=== PATIENT | female | born 1990 | race Caucasian/White ===

== ENCOUNTER 2016-08-15 12:22 | Emergency (ER) | payer OTHER ==
[2016-08-15 12:55] VITALS: BP 125/94
--- NOTE | 2016-08-15 13:29 | UC ---
Skin Complaint HPI - HPI Summary HPI Summary: ONE WEEK AGO GIVEN ACZONE BY HAND FINISHER. USING CREME AND 12 HOURS AGO FELT IRRITATION AND BURNING AROUND EYES. TODAY HAS REDNESS AND SMALL BLISTERS AROUND EYES WELL REDNESS TO CONJUNCTIVAE. - History of Current Complaint Chief Complaint: UCAllergicReaction Time Seen by Provider: 08/15/16 13:01 Stated Complaint: RX REACTION Hx Obtained From: Patient Hx Last Menstrual Period: 08/14/16 Onset/Duration: Sudden Onset, Lasting Hours Skin Exposure Onset/Duration: Days Ago Onset Severity: Moderate Current Severity: Moderate Location: Discrete - BILAT EYE LIDS & EYES Character: Hives, Painful Aggravating: Touch Alleviating: Unknown Associated Signs & Symptoms: Positive: Rash, Drainage, Tenderness. Negative: Vomiting, Numbness, Diaphoresis, Weakness, Shivering, Difficulty Breathing, Fever, Chills, Cough, Wheezing, Chest Pain, Hoarseness, Throat Tightening, Abdominal Pain, Lightheadedness, Syncope, Bruising, Red Streaks, Joint Swelling Related History: Recent change in medication - Allergy/Home Medications Allergies/Adverse Reactions: Allergies Allergy/AdvReac Type Severity Reaction Status Date / Time No Known Allergies Allergy Verified 07/16/16 18:19 Review of Systems Constitutional: Negative Skin: Rash Eyes: Eye Redness, Photophobia ENT: Negative Respiratory: Negative Cardiovascular: Negative Gastrointestinal: Negative Genitourinary: Negative Motor: Negative Neurovascular: Negative Musculoskeletal: Negative Neurological: Negative Psychological: Negative All Other Systems Reviewed And Are Negative: Yes PMH/Surg Hx/FS Hx/Imm Hx Previously Healthy: Yes Endocrine History Of: Denies: Diabetes, Thyroid Disease Cardiovascular History Of: Denies: Cardiac Disorders, Hypertension, Congestive Heart Failure Respiratory History Of: Reports: Asthma Denies: COPD GI/ History Of: Denies: Ulcer, Renal Disease - Surgical History Surgical History: Yes Surgery Procedure, Year, and Place: Tubes in ears as a child - Family History Known Family History: Positive: Respiratory Disease Negative: Renal Disease - Social History Occupation: Employed Full-time, Student Lives: Alone Alcohol Use: Rare Substance Use Type: None Smoking Status (MU): Former Smoker Type: Cigarettes Amount Used/How Often: t Length of Time of Smoking/Using Tobacco: 5 years Have You Smoked in the Last Year: Yes When Did the Patient Quit Smoking/Using Tobacco: t - Immunization History Most Recent Influenza Vaccination: doesn't get Physical Exam Triage Information Reviewed: Yes Appearance: Well-Appearing, No Pain Distress, Well-Nourished Vital Signs: Initial Vital Signs Temp 98.1 F 08/15/16 12:50 Pulse 70 08/15/16 12:50 Resp 18 08/15/16 12:50 BP 125/94 08/15/16 12:50 Pulse Ox 99 08/15/16 12:50 Eyes: Positive: Conjunctiva Inflamed ENT Exam: Normal ENT: Positive: Normal ENT inspection, Hearing grossly normal, Pharynx normal, TMs normal Dental Exam: Normal Neck exam: Normal Neck: Positive: Supple, Nontender Respiratory Exam: Normal Respiratory: Positive: Chest non-tender, Lungs clear, Normal breath sounds, No respiratory distress, No accessory muscle use Cardiovascular Exam: Normal Cardiovascular: Positive: RRR, No Murmur, Pulses Normal Abdominal Exam: Normal Abdomen Description: Positive: Nontender, No Organomegaly Musculoskeletal Exam: Normal Musculoskeletal: Positive: Strength Intact, ROM Intact Neurological Exam: Normal Psychological Exam: Normal Psychological: Positive: Normal Response To Family Skin Exam: Normal Course/Dx - Differential Diagnoses - Skin Complaint Differential Diagnoses: Contact Dermatitis, Drug Rash, Impetigo, Local Allergic Reaction, Medication; Adverse Reaction, Tinea - Diagnoses Provider Diagnoses: CONTACT DERMATITIS. CONJUNCTIVITIS Discharge - Discharge Plan Condition: Stable Disposition: HOME Prescriptions: Neomycin/Polym/HC OPTH.SUSP* [Cortisporin OPHTH.SUSP*] 1 drop BOTH EYES Q4H #1 btl predniSONE TAB* [Deltasone TAB*] 10 mg PO DAILY #26 tab Patient Education Materials: Contact Dermatitis (ED), Conjunctivitis (ED) Forms: *Work Release Referrals: Dinorah Newberry NP [Primary Care Provider] -
== END 2016-08-15 13:22 | disposition home or self-care (01) ==
LOC: UCEAST 12:22
DX: L25.3 Unspecified contact dermatitis due to other chemical products (principal); H10.9 Unspecified conjunctivitis; Z87.891 Personal history of nicotine dependence
CPT/HCPCS: 99212; G0463

== ENCOUNTER 2016-09-13 20:30 | Emergency (ER) | payer OTHER ==
[2016-09-13 20:56] VITALS: BP 121/74
[2016-09-13] MEDS ORDERED: Oseltamivir CAP* 75 MG PO ONE (21:07)
[2016-09-13] MEDS ORDERED: predniSONE TAB* 20 MG PO ONE (21:07)
--- NOTE | 2016-09-13 21:24 | UC ---
Respiratory Complaint HPI - HPI Summary HPI Summary: Nasal congestion, fevers, hoarse voice, lots of wheezing despite using inhaler starting about 48 hours ago. Denies n/v/d. - History of Current Complaint Chief Complaint: UCRespiratory Stated Complaint: ST,CONGESTION,ACHES Time Seen by Provider: 09/13/16 21:02 Hx Obtained From: Patient Hx Last Menstrual Period: 09/11/16 ?: No Onset/Duration: Gradual Onset, Lasting Days Timing: Constant Severity Initially: Mild Severity Currently: Moderate Character: Cough: Nonproductive Aggravating Factors: Deep Breaths, Recumbent Position Alleviating Factors: Upright Position Associated Signs And Symptoms: Positive: Fever, Chills, Wheezing, URI, Nasal Congestion - Allergies/Home Medications Allergies/Adverse Reactions: Allergies Allergy/AdvReac Type Severity Reaction Status Date / Time No Known Allergies Allergy Verified 09/13/16 20:56 PMH/Surg Hx/FS Hx/Imm Hx Endocrine History Of: Denies: Diabetes, Thyroid Disease Cardiovascular History Of: Denies: Cardiac Disorders, Hypertension, Congestive Heart Failure Respiratory History Of: Reports: Asthma Denies: COPD GI/ History Of: Denies: Ulcer, Renal Disease - Surgical History Surgical History: Yes Surgery Procedure, Year, and Place: Tubes in ears as a child. wisdom teeth - Family History Known Family History: Positive: Respiratory Disease Negative: Renal Disease - Social History Occupation: Employed Part-time, Student Alcohol Use: Weekly Substance Use Type: None Smoking Status (MU): Former Smoker Type: Cigarettes Amount Used/How Often: t Length of Time of Smoking/Using Tobacco: 5 years Have You Smoked in the Last Year: Yes When Did the Patient Quit Smoking/Using Tobacco: 1.5 years ago - Immunization History Most Recent Influenza Vaccination: doesn't get Review of Systems Constitutional: Fever, Chills, Fatigue Skin: Negative Eyes: Negative ENT: Nasal Discharge Respiratory: Shortness Of Breath, Cough Cardiovascular: Negative Gastrointestinal: Negative Genitourinary: Negative Motor: Negative Neurovascular: Negative Musculoskeletal: Negative Neurological: Negative Psychological: Negative All Other Systems Reviewed And Are Negative: Yes Physical Exam Triage Information Reviewed: Yes Appearance: Well-Appearing, No Pain Distress, Well-Nourished Vital Signs: Initial Vital Signs Temp 98.5 F 09/13/16 20:50 Pulse 82 09/13/16 20:50 Resp 18 09/13/16 20:50 BP 121/74 09/13/16 20:50 Pulse Ox 100 09/13/16 20:50 Vital Signs Reviewed: Yes Eye Exam: Normal Eyes: Positive: Conjunctiva Clear ENT: Positive: Pharynx normal, Nasal congestion, TMs normal Dental Exam: Normal Neck exam: Normal Neck: Positive: Supple, Nontender, No Lymphadenopathy Respiratory: Positive: Chest non-tender, Lungs clear, Normal breath sounds, No respiratory distress, No accessory muscle use Cardiovascular Exam: Normal Cardiovascular: Positive: RRR, No Murmur Musculoskeletal Exam: Normal Neurological Exam: Normal Psychological Exam: Normal Skin Exam: Normal UC Diagnostic Evaluation - Laboratory O2 Sat by Pulse Oximetry: 100 Respiratory Course/Dx - Differential Dx/Diagnosis Provider Diagnoses: Vtihnlulf-nsii-jrirtpt. bronchospasm Discharge - Discharge Plan Condition: Stable Disposition: HOME Prescriptions: Oseltamivir CAP* [Tamiflu CAP*] 75 mg PO BID #9 cap predniSONE TAB* [Deltasone TAB*] 40 mg PO DAILY #8 tab Patient Education Materials: Influenza (ED) Forms: *Work Release Referrals: Dinorah Newberry NP [Primary Care Provider] - If Needed Additional Instructions: Call or return if you develop increasing fever, shortness of breath, chest pain , bloody sputum, or otherwise worsen. If you have not improved at all after several days, contact your primary care physician or return here.
== END 2016-09-13 21:32 | disposition home or self-care (01) ==
LOC: UCEAST 20:30
DX: J11.1 Influenza due to unidentified influenza virus with other respiratory manifestations (principal); J98.01 Acute bronchospasm; Z87.891 Personal history of nicotine dependence
CPT/HCPCS: 99212; A9270-GY; G0463; J7512

== ENCOUNTER 2016-11-19 22:33 | Emergency (ER) | payer OTHER ==
[2016-11-19 23:29] LABS: Urine Bacteria 1+ (Absent); Urine Bilirubin Negative (Negative); Urine Glucose Negative (Negative); Urine Nitrite Negative (Negative); Urine Sperm Present (Absent)
[2016-11-19 23:32] LABS: Hematocrit 40 % (35-47); Hemoglobin 13.6 g/dl (12.0-16.0); Mean Corpuscular HGB Conc 34 g/dl (31-36); Mean Corpuscular Hemoglobin 31 pg (27-31); Mean Corpuscular Volume 90 fL (80-97); Mean Platelet Volume 9 um3 (7.4-10.4); Red Blood Count 4.44 10^6/ul (4.0-5.4); Red Cell Distribution Width 12 % (10.5-15); White Blood Count 9.4 10^3/ul (3.5-10.8)
[2016-11-19 23:45] LABS: ALT 12 U/L (7-52); AST 15 U/L (13-39); Alkaline Phosphatase 35 U/L (34-104); Anion Gap 6 mmol/L (2-11); BUN/Creatinine Ratio 21.3 (8-20); Blood Urea Nitrogen 17 mg/dL (6-24); C Reactive Protein 2.01 mg/L (< 5.00); CO2 Carbon Dioxide 26 mmol/L (22-32); Calcium 9.3 mg/dL (8.6-10.3); Chloride 101 mmol/L (101-111); EGFR African American 113.3 (>60); EGFR Non-African American 88.1 (>60); Globulin 3.2 g/dL (2-4); Glucose 91 mg/dL (70-100); Lipase 24 U/L (11.0-82.0); Potassium 3.6 mmol/L (3.5-5.0); Sodium 133 mmol/L (133-145); Total Protein 7.2 g/dL (6.4-8.9)
[2016-11-20] MEDS ORDERED: Morphine INJ* 4 MG/ML 1 ML SYRINGE IV ONE (00:47)
[2016-11-20] MEDS ORDERED: Ondansetron INJ* 2 MG/ML VIAL IV ONE (00:48)
[2016-11-20] MEDS ORDERED: NS 0.9% 1000 ML* 1,000 ML IV SCH (01:00)
[2016-11-20] MEDS ORDERED: Iohexol 300* (CONTRAST) 10 ML SDV IV ONE (01:10)
[2016-11-20 03:12] VITALS: BP 111/64
--- NOTE | 2016-11-20 04:00 | ED ---
Bailey Espinoza Alok, scribed for Yrn Mueller on 11/20/16 at 0056 . Abdominal Pain/Female - HPI Summary HPI Summary: 26 y/o female presents to the ED for abd worsening since 2200. Pt states she experienced mild pain earlier in the day but it subsided on its own before returning again at 2200. She describes this pain as a sharp pain on the left side of her abdomen which comes and goes. Her pain currently registers at a 8 out of 10 in severity. Pt also notes nausea with dry heaves. Pt denies hematuria or vaginal bleeding. Pt denies hx of kidney stones. Pt drinks ETOH occasionally. Pt has NKDA. - History of Current Complaint Chief Complaint: EDAbdPain Stated Complaint: LEFT SIDE ABD PAIN Time Seen by Provider: 11/20/16 00:33 Hx Obtained From: Patient Hx Last Menstrual Period: 09/11/16 ?: No Onset/Duration: Gradual Onset, Lasting Hours, Still Present Timing: Intermittent Episode Lasting Severity Initially: Moderate Severity Currently: Moderate Pain Intensity: 8 Pain Scale Used: 0-10 Numeric Location: Discrete At: LLQ Radiates: No Character: Sharp Associated Signs and Symptoms: Positive: Nausea. Negative: Urinary Symptoms, Vaginal Bleeding Allergies/Adverse Reactions: Allergies Allergy/AdvReac Type Severity Reaction Status Date / Time No Known Allergies Allergy Verified 09/13/16 20:56 PMH/Surg Hx/FS Hx/Imm Hx Endocrine/Hematology History: Denies: Hx Diabetes, Hx Thyroid Disease Cardiovascular History: Denies: Hx Congestive Heart Failure, Hx Hypertension Respiratory History: Reports: Hx Asthma Denies: Hx Chronic Obstructive Pulmonary Disease (COPD) GI History: Denies: Hx Ulcer History: Denies: Hx Renal Disease Neurological History: Reports: Other Neuro Impairments/Disorders - CONCUSSIONS - Surgical History Surgery Procedure, Year, and Place: Tubes in ears as a child. wisdom teeth Infectious Disease History: No Infectious Disease History: Denies: Hx Clostridium Difficile, Hx Hepatitis, Hx Human Immunodeficiency Virus (HIV), Hx of Known/Suspected MRSA, Hx Shingles, Hx Tuberculosis, Hx Known/ Suspected VRE, Hx Known/Suspected VRSA, History Other Infectious Disease, Traveled Outside the [place] in Last 30 Days - Family History Known Family History: Positive: Respiratory Disease Negative: Renal Disease - Social History Occupation: Employed Full-time Lives: With Family Alcohol Use: Weekly Hx Substance Use: No Substance Use Type: Reports: None Hx Tobacco Use: Yes Smoking Status (MU): Former Smoker Type: Cigarettes Amount Used/How Often: t Length of Time of Smoking/Using Tobacco: 5 years Have You Smoked in the Last Year: Yes Review of Systems Negative: Fever Positive: Abdominal Pain - LLQ, Vomiting - Dry Heaves, Nausea Negative: hematuria, other - Vaginal Bleeding All Other Systems Reviewed And Are Negative: Yes Physical Exam Triage Information Reviewed: Yes Vital Signs On Initial Exam: Initial Vitals Temp Pulse Resp BP Pulse Ox 98.8 F 76 16 133/94 100 11/19/16 22:54 11/19/16 22:54 11/19/16 22:54 11/19/16 22:54 11/19/16 22:54 Vital Signs Reviewed: Yes Appearance: Positive: Well-Appearing, No Pain Distress Skin: Positive: Warm, Skin Color Reflects Adequate Perfusion, Dry Head/Face: Positive: Normal Head/Face Inspection Eyes: Positive: EOMI, PRICILLA ENT: Positive: Normal ENT inspection Neck: Positive: Supple, Nontender Respiratory/Lung Sounds: Positive: Clear to Auscultation, Breath Sounds Present Cardiovascular: Positive: RRR, Pulses are Symmetrical in both Upper and Lower Extremities Abdomen Description: Positive: Nontender, Other: - Left Lower Quadrant Tenderness Bowel Sounds: Positive: Present Musculoskeletal: Positive: Normal, Strength/ROM Intact Neurological: Positive: Normal, Sensory/Motor Intact, Alert, Oriented to Person Place, Time Diagnostics - Vital Signs Vital Signs Temp Pulse Resp BP Pulse Ox 11/19/16 22:54 98.8 F 76 16 133/94 100 - Laboratory Lab Results: Lab Results 11/19/16 11/19/16 11/19/16 Range/Units 23:05 23:19 23:19 WBC 9.4 (3.5-10.8) 10^3/ul RBC 4.44 (4.0-5.4) 10^6/ul Hgb 13.6 (12.0-16.0) g/dl Hct 40 (35-47) % MCV 90 (80-97) fL MCH 31 (27-31) pg MCHC 34 (31-36) g/dl RDW 12 (10.5-15) % Plt Count 213 (150-450) 10^3/ul MPV 9 (7.4-10.4) um3 Neut % (Auto) 51.4 (38-83) % Lymph % (Auto) 36.6 (25-47) % [place] % (Auto) 7.2 (1-9) % Eos % (Auto) 3.8 (0-6) % Baso % (Auto) 1.0 (0-2) % Absolute Neuts (auto) 4.8 (1.5-7.7) 10^3/ul Absolute Lymphs (auto) 3.4 (1.0-4.8) 10^3/ul Absolute Monos (auto) 0.7 (0-0.8) 10^3/ul Absolute Eos (auto) 0.4 (0-0.6) 10^3/ul Absolute Basos (auto) 0.1 (0-0.2) 10^3/ul Absolute Nucleated RBC 0 10^3/ul Nucleated RBC % 0 Sodium 133 (133-145) mmol/L Potassium 3.6 (3.5-5.0) mmol/L Chloride 101 (101-111) mmol/L Carbon Dioxide 26 (22-32) mmol/L Anion Gap 6 (2-11) mmol/L BUN 17 (6-24) mg/dL Creatinine 0.80 (0.51-0.95) mg/dL Est GFR ( Amer) 113.3 (>60) Est GFR (Non-Af Amer) 88.1 (>60) BUN/Creatinine Ratio 21.3 H (8-20) Glucose 91 (70-100) mg/dL Calcium 9.3 (8.6-10.3) mg/dL Total Bilirubin 0.30 (0.2-1.0) mg/dL AST 15 (13-39) U/L ALT 12 (7-52) U/L Alkaline Phosphatase 35 (34-104) U/L C-Reactive Protein 2.01 (< 5.00) mg/L Total Protein 7.2 (6.4-8.9) g/dL Albumin 4.0 (3.2-5.2) g/dL Globulin 3.2 (2-4) g/dL Albumin/Globulin Ratio 1.3 (1-3) Lipase 24 (11.0-82.0) U/L Beta HCG, Quant < 0.60 mIU/mL Urine Color Yellow Urine Appearance Cloudy Urine pH 6.0 (5-9) Ur Specific [place] 1.024 (1.010-1.030) Urine Protein Negative (Negative) Urine Ketones Negative (Negative) Urine Blood Negative (Negative) Urine Nitrate Negative (Negative) Urine Bilirubin Negative (Negative) Urine Urobilinogen Negative (Negative) Ur Leukocyte Esterase Trace H (Negative) Urine WBC (Auto) Absent (Absent) Urine RBC (Auto) 1+(3-5/hpf) H (Absent) Ur Squamous Epith Cells Present H (Absent) Urine Bacteria 1+ H (Absent) Urine Sperm Present H (Absent) Urine Glucose Negative (Negative) Urine Ascorbic Acid * H (Negative) Result Diagrams: 11/19/16 23:19 11/19/16 23:19 Lab Statement: Any lab studies that have been ordered have been reviewed, and results considered in the medical decision making process. - CT Abd/Pel CT CT Interpretation: Positive (See Comments) - IMPRESSION: NO INFLAMMATORY PROCESS IDENTIFIED IN THE ABDOMEN OR PELVIS. NO ABDOMINAL MESS, ADENOPATHY OR COLLECTION SEEN. ADENXAL CYSTS NOTED BILATERALLY LARGER ON THE LEFT. FLUID SEEN IN THE LEFT ADENXA AND CUL-DE-SAC IS CONSISTENT WITH A RUPTURED CYST IN THE LEFT ADNEXA. CT Interpretation Completed By: Radiologist - Additional Comments Diagnostic Additional Comments: Pelvis US- Negative Abdominal Pain Fem Course/Dx - Course Course Of Treatment: Pt arrived with abd pain. Had labs, US, and CT done. No ovarian torsion. Will discharge with OBGYN FU. - Diagnoses Provider Diagnoses: Ovarian cyst, Abdominal pain Discharge - Discharge Plan Condition: Stable Disposition: HOME Referrals: Beulah Tineo MD [Medical Doctor] - Additional Instructions: Please follow up with rougher for cement The documentation as recorded by the Bailey rader Alok accurately reflects the service I personally performed and the decisions made by , Yrn Mueller.
--- NOTE | 2016-11-20 08:13 | RAD ---
INDICATION: Diverticulitis. Abdominal pain. COMPARISON: Pelvic sonogram same day TECHNIQUE: Axial source images were obtained from the hemidiaphragms to the symphysis pubis following administration of oral and intravenous contrast. 88 mL Omnipaque 300 was utilized. Coronal and sagittal reconstructed images were acquired. Lung bases: The lung bases are clear. Liver: The liver is normal in size. There are no masses. There is no ductal dilatation. Gallbladder: There are no calcified gallstones. There is no evidence of wall thickening or pericholecystic fluid. Spleen: The spleen is normal in size. There are no masses. Pancreas: There is no focal pancreatic mass or ductal dilatation. Adrenal glands: There is no evidence of adrenal mass. Kidneys: The kidneys are normal in size and position. There are prompt nephrograms and there is prompt excretion bilaterally. There are no renal parenchymal masses. There is no evidence of nephrolithiasis. Adenopathy: There is no evidence of adenopathy by size criteria. Fluid collections: There is a small amount of free fluid in the cul-de-sac. Vessels:There are no significant atherosclerotic changes involving the aorta. There is no focal aneurysm. The iliac vessels are normal in caliber. The IVC appears normal. GI tract: There are no acute CT bowel findings. There is no obstruction. The stomach and small bowel appear normal. The lower GI tract is remarkable for retained stool. The cecum, ileocecal valve, and terminal ileum appear normal. The appendix is visualized and appear normal. Pelvic organs: The uterus is unremarkable. There are bilateral adnexal cysts with a dominant 3.6 cm left adnexal cyst. Please refer to concurrent pelvic sonogram Bladder: There are no bladder masses. Abdominal and pelvic soft tissues: The extraperitoneal abdominal and pelvic soft tissues appear normal.. Osseous structures: There are no acute osseous findings. Other: None IMPRESSION: Adnexal cysts left greater than right. Free fluid, likely physiologic free fluid. Normal appendix. No inflammatory changes.
--- NOTE | 2016-11-20 08:14 | RAD ---
HISTORY: Left-sided pelvic pain COMPARISONS: None TECHNIQUE: Multiple transverse and longitudinal ultrasound images were obtained of the pelvis using grayscale, color Doppler, and spectral Doppler imaging using the transabdominal transducer. FINDINGS: UTERUS: The uterus measures 7.9 x 3 x 4.3 cm. The uterus is normal in shape, size, contour, and echotexture. ENDOMETRIUM: The endometrial stripe is smooth. The endometrium measures 0.5 cm in thickness. CUL-DE-SAC: There is a small amount of simple fluid within the cul-de-sac. This may be physiologic in a reproductive age female. RIGHT OVARY: The right ovary measures 4 x 2.1 x 4 cm. Normal arterial and venous waveforms are identifiable within the ovary on spectral Doppler imaging. Follicular cysts are noted. LEFT OVARY: The left ovary measures 5.7 x 2.3 x 2.9 cm. Normal arterial and venous waveforms are identifiable within the ovary on spectral Doppler imaging. Multiple follicles are noted, including a complicated cyst suggestive of a hemorrhagic cyst measuring 2.5 cm. BLADDER: The visualized bladder is unremarkable. IMPRESSION: 1. NO SONOGRAPHIC FEATURES OF TORSION. PLEASE NOTE THAT PARTIAL OR INTERMITTENT TORSION MAY BE SONOGRAPHICALLY NORMAL. 2. SMALL AMOUNT OF FREE FLUID WITHIN THE CUL-DE-SAC. THIS MAY BE PHYSIOLOGIC WITHIN A REPRODUCTIVE AGE FEMALE. 3. 2.5 CM COMPLICATED RIGHT OVARIAN CYST, LIKELY A HEMORRHAGIC CYST. RECOMMEND FOLLOW-UP IMAGING IN 6 WEEKS-12 WEEKS TO DOCUMENT RESOLUTION
== END 2016-11-20 04:10 | disposition home or self-care (01) ==
LOC: ED 22:33
DX: N83.209 Unspecified ovarian cyst, unspecified side (principal); R10.32 Left lower quadrant pain; Z87.891 Personal history of nicotine dependence; R11.2 Nausea with vomiting, unspecified
CPT/HCPCS: 36415; 74177; 76856; 80053; 81003; 81015; 83690; 84702; 85025; 86140; 87086; 96374; 96375; 99283; J2270; J2405; Q9967

== ENCOUNTER 2016-12-06 11:54 | Emergency (ER) | payer OTHER ==
[2016-12-06 12:10] VITALS: BP 117/84
--- NOTE | 2016-12-06 12:42 | UC ---
Throat Pain/Nasal Vish HPI - HPI Summary HPI Summary: Two days of fever (102F) sore throat, multiple exposures to strep. No rashes. No abdominal pain. Had vomiting last night due to throat discomfort. - History of Current Complaint Hx Obtained From: Patient Hx Last Menstrual Period: 12/05/16 Onset/Duration: Gradual Onset, Lasting Days, Still Present, Worse Since - TODAY Severity: Moderate Cough: None Associated Signs & Symptoms: Positive: Hoarseness, Fever, Vomiting - RESOLVED - Epiglottits Risk Factors Epiglottis Risk Factors: Negative <Natan Schumacher - Last Filed: 12/06/16 12:38> <Yan Haines - Last Filed: 12/07/16 14:02> - History of Current Complaint Chief Complaint: UCRespiratory Stated Complaint: SORE THROAT CONGESTION FEVER VOMITING Time Seen by Provider: 12/06/16 12:03 - Allergies/Home Medications Allergies/Adverse Reactions: Allergies Allergy/AdvReac Type Severity Reaction Status Date / Time No Known Allergies Allergy Verified 12/06/16 12:03 Home Medications: Home Medications Loratadine [Alavert] 12/06/16 [History] PMH/Surg Hx/FS Hx/Imm Hx Previously Healthy: Yes Endocrine History Of: Denies: Diabetes, Thyroid Disease Cardiovascular History Of: Denies: Cardiac Disorders, Hypertension, Congestive Heart Failure Respiratory History Of: Reports: Asthma Denies: COPD GI/ History Of: Denies: Ulcer, Renal Disease - Surgical History Surgical History: Yes Surgery Procedure, Year, and Place: Tubes in ears as a child. wisdom teeth - Family History Known Family History: Positive: Respiratory Disease Negative: Renal Disease - Social History Occupation: Employed Part-time, Student Lives: With Family Alcohol Use: Weekly Substance Use Type: None Smoking Status (MU): Former Smoker Type: Cigarettes Amount Used/How Often: t Length of Time of Smoking/Using Tobacco: 5 years Have You Smoked in the Last Year: Yes When Did the Patient Quit Smoking/Using Tobacco: 1.5 years ago - Immunization History Most Recent Influenza Vaccination: doesn't get <Natan Schumacher - Last Filed: 12/06/16 12:38> Review of Systems Constitutional: Fever, Chills, Fatigue Skin: Negative Eyes: Negative ENT: Sore Throat Respiratory: Negative Cardiovascular: Negative Gastrointestinal: Vomiting - RESOLVED Genitourinary: Negative Motor: Negative Neurovascular: Negative Musculoskeletal: Negative Neurological: Negative Psychological: Negative All Other Systems Reviewed And Are Negative: Yes <FlaviojaidenNatan - Last Filed: 12/06/16 12:38> Physical Exam Triage Information Reviewed: Yes Appearance: Well-Appearing, No Pain Distress, Well-Nourished Vital Signs: Initial Vital Signs Temp 98.6 F 12/06/16 12:05 Pulse 81 12/06/16 12:05 Resp 16 12/06/16 12:05 BP 117/84 12/06/16 12:05 Pulse Ox 100 12/06/16 12:05 Vital Signs Reviewed: Yes Eye Exam: Normal ENT: Positive: Hearing grossly normal, Pharyngeal erythema, TMs normal Dental Exam: Normal Neck: Positive: Supple, Nontender, Enlarged Nodes @ - ANTERIOR CERVICAL LN Respiratory Exam: Normal Respiratory: Positive: Chest non-tender, Lungs clear, Normal breath sounds, No respiratory distress Cardiovascular Exam: Normal Cardiovascular: Positive: RRR, No Murmur Abdominal Exam: Normal Abdomen Description: Positive: Nontender, No Organomegaly Musculoskeletal Exam: Normal Neurological Exam: Normal Psychological Exam: Normal Skin Exam: Normal <FlaviojaidenNatan - Last Filed: 12/06/16 12:38> Vital Signs: Initial Vital Signs Temp 98.6 F 12/06/16 12:05 Pulse 81 12/06/16 12:05 Resp 16 12/06/16 12:05 BP 117/84 12/06/16 12:05 Pulse Ox 100 12/06/16 12:05 <Yan Haines M - Last Filed: 12/07/16 14:02> Throat Pain/Nasal Course/Dx - Differential Dx/Diagnosis Differential Diagnosis/HQI/PQRI: Mononucleosis, Pharyngitis, Tonsillitis, URI Provider Diagnoses: PHARYNGITIS <Natan Schumacher - Last Filed: 12/06/16 12:38> Discharge <Natan Schumacher - Last Filed: 12/06/16 12:38> <Yan Haines - Last Filed: 12/07/16 14:02> - Discharge Plan Condition: Stable Disposition: HOME Patient Education Materials: Mononucleosis (ED), Tonsillitis (ED) Forms: *Work Release Referrals: Dinorah Newberry NP [Primary Care Provider] -
[2016-12-06 13:09] LABS: EBV Response YES
[2016-12-06 16:33] LABS: Hematocrit 41 % (35-47); Hemoglobin 13.7 g/dl (12.0-16.0); Mean Corpuscular HGB Conc 34 g/dl (31-36); Mean Corpuscular Hemoglobin 31 pg (27-31); Mean Corpuscular Volume 90 fL (80-97); Mean Platelet Volume 9 um3 (7.4-10.4); Red Blood Count 4.49 10^6/ul (4.0-5.4); Red Cell Distribution Width 13 % (10.5-15); White Blood Count 8.9 10^3/ul (3.5-10.8)
[2016-12-06 16:55] LABS: Mono Internal Control QC Line Present
[2016-12-07 12:19] LABS: EBV Capsid Ag IgG Ab Positive (Negative); EBV Capsid Ag IgM Ab Negative (Negative)
== END 2016-12-06 12:49 | disposition home or self-care (01) ==
LOC: UCEAST 11:54
DX: J02.9 Acute pharyngitis, unspecified (principal)
CPT/HCPCS: 36415; 85027; 86308; 86664; 86665; 87651; 99211; G0463

== ENCOUNTER 2017-02-28 10:03 | Day surgery (SDC) | payer OTHER ==
[~2017-02-28 10:03] MED LIST: Buffered Lidocaine 0.9% SYRIN* 5 ML/SYR SYRINGE INTRADERM ONE; Dexamethasone IV* 4 MG/ML 1 ML (4 MG) IV SLOW PU ONE; Famotidine IV* 10 MG/ML 2 ML (20 mg) IV ONE
[2017-02-28] MEDS ORDERED: Dexamethasone IV* 4 MG/ML 1 ML (4 MG) ONE (10:25)
[2017-02-28] MEDS ORDERED: Famotidine IV* 10 MG/ML 2 ML (20 mg) ONE (10:25)
[2017-02-28] MEDS ORDERED: Buffered Lidocaine 0.9% SYRIN* 5 ML/SYR SYRINGE ONE (10:25)
[2017-02-28] MEDS ORDERED: Scopolamine 1.5 mg* PATCH ONE (12:34)
[2017-02-28] MEDS ORDERED: Succinylcholine* 20 MG/ML 10 ML VIAL ONE (12:47)
[2017-02-28] MEDS ORDERED: fentaNYL* 50 MCG/ML 2 ML VIAL (100 MCG VIAL) ONE ×3 (12:47→13:31)
[2017-02-28] MEDS ORDERED: Propofol* 10 MG/ML 20 ML BTL IV PUSH ONE (12:47)
[2017-02-28] MEDS ORDERED: Lidocaine 2% PF * 5 ML VIAL ONE (12:47)
[2017-02-28] MEDS ORDERED: Scopolomine PATCH Remove* 1 NOTE MISC PATCH OFF SCH (13:00)
[2017-02-28] MEDS ORDERED: Scopolamine 1.5 mg* PATCH TRANSDERM SCH (13:00)
[2017-02-28] MEDS ORDERED: Ondansetron INJ* 2 MG/ML VIAL ONE (13:01)
[2017-02-28] MEDS ORDERED: PROCHLORPERAZINE INJ 5 MG/ML 2 ML VIAL IV PRN (13:32)
[2017-02-28] MEDS: fentaNYL* 50 MCG/ML 2 ML VIAL (100 MCG VIAL) IV PRN ×2 (13:41→14:06)
[2017-02-28] MEDS ORDERED: HYDROcodone/ACET. 7.5/325 LIQ* 15 ML UDC ONE (13:48)
[2017-02-28] MEDS ORDERED: PROCHLORPERAZINE INJ 5 MG/ML 2 ML VIAL ONE (13:52)
[2017-02-28 15:32] VITALS: BP 111/66
--- NOTE | 2017-03-01 03:26 | OP ---
DATE OF OPERATION: 02/28/17 - [facility] DATE OF : 89 SURGEON: Juan Rios MD DESK MONITOR: None. ANESTHESIOLOGIST: Callie Escamilla MD ANESTHESIA: General. PRE-OP DIAGNOSIS: Chronic tonsillitis. POST-OP DIAGNOSIS: Chronic tonsillitis. OPERATIVE PROCEDURE: Tonsillectomy. ESTIMATED BLOOD LOSS: Negligible. SPECIMENS: Right and left tonsils to pathology. INDICATION: This is a 26-year-old woman with chronic tonsillitis, who presents for elective tonsillectomy. DESCRIPTION OF PROCEDURE: General anesthesia was induced and oral endotracheal tube was placed. The table was turned, a head wrap was placed and the patient was draped and time-out was performed. The McIvor mouth gag was brought into the field. It was used to facilitate exposure of the oropharynx and the suspended from the Vasquez stand. The right tonsil was grasped with straight Allis forceps, retracted medially and dissected free of its fossa with a coblation device at a setting of 7 and 3. There was no bleeding. The left tonsil was removed in an identical fashion again with no bleeding. Once the tonsils were removed, the superior and inferior pole regions were prophylactically cauterized with the coblation device at a setting of 9 and 5. At this point, an orogastric tube was passed into stomach, stomach contents were evacuated, and the mouth gag was then let down for a period of a minute. It was then opened again. There was no evidence of active bleeding and so the patient was returned to the care of the anesthesiologist, extubated, and delivered to the PACU in stable condition. [id number] #: [id number] MTDD
== END 2017-02-28 15:33 | disposition home or self-care (01) ==
LOC: OR 10:03
PROVIDERS: ATTEND Otolaryngology
DX: J35.01 Chronic tonsillitis (principal); Z87.891 Personal history of nicotine dependence; J45.909 Unspecified asthma, uncomplicated
CPT/HCPCS: 81025; 88304; A9270-GY; J0330; J0780; J1100; J2405; J2704; J3010

== ENCOUNTER 2017-04-11 19:49 | Emergency (ER) | payer OTHER ==
[2017-04-11 21:16] VITALS: BP 131/81
--- NOTE | 2017-04-11 22:02 | UC ---
Complaint Female HPI - HPI Summary HPI Summary: 1 WEEK OF THICK GREENISH/YELLOW VAGINAL DISCHARGE AND IRRITATION. NO FEVER, N/ V. DENIES URINARY SYMPTOMS. HAS NOT HAD SEX IN OVER 2 MONTHS. IS NOT CONCERNED ABOUT STD. CONCERNED ABOUT POSSIBLE BV. USED 3 DAY OTC MONISTAT WITH NO RELIEF. - History Of Current Complaint Chief Complaint: UCGU Stated Complaint: DISCHARGE Time Seen by Provider: 04/11/17 21:44 Hx Obtained From: Patient Hx Last Menstrual Period: 2 wks ago Onset/Duration: Gradual Onset, Lasting Days, Still Present Timing: Constant Severity Initially: Moderate Severity Currently: Moderate Pain Intensity: 1 Pain Scale Used: 0-10 Numeric Aggravating Factor(s): Nothing Alleviating Factor(s): Nothing Associated Signs And Symptoms: Positive: Vaginal Discharge. Negative: Fever, Nausea, Vomiting(# Of Episodes =), Genital Swelling, Genital Blisters - Allergies/Home Medications Allergies/Adverse Reactions: Allergies Allergy/AdvReac Type Severity Reaction Status Date / Time Seasonal Allergy Congestion Uncoded 04/11/17 21:16 PMH/Surg Hx/FS Hx/Imm Hx Respiratory History: Asthma - Surgical History Surgical History: Yes Surgery Procedure, Year, and Place: Tubes in ears as a child. wisdom teeth, late teens - Family History Known Family History: Positive: Respiratory Disease Negative: Hypertension, Diabetes, Renal Disease - Social History Alcohol Use: Occasionally Alcohol Amount: 1-2 drinks a week Substance Use Type: None Smoking Status (MU): Former Smoker Type: Cigarettes Amount Used/How Often: smoked for approx 4 yrs, smoked 1 pk a week Length of Time of Smoking/Using Tobacco: 5 years Have You Smoked in the Last Year: Yes When Did the Patient Quit Smoking/Using Tobacco: 2014 - Immunization History Most Recent Influenza Vaccination: doesn't get Review of Systems Constitutional: Negative Respiratory: Negative Cardiovascular: Negative Gastrointestinal: Negative Genitourinary: Vaginal/Penile Discharge All Other Systems Reviewed And Are Negative: Yes Physical Exam Triage Information Reviewed: Yes Appearance: Well-Appearing, No Pain Distress, Well-Nourished Vital Signs: Initial Vital Signs Temp 98.3 F 04/11/17 21:13 Pulse 70 04/11/17 21:13 Resp 12 04/11/17 21:13 BP 131/81 04/11/17 21:13 Pulse Ox 100 04/11/17 21:13 Vital Signs Reviewed: Yes Eyes: Positive: Conjunctiva Clear ENT: Positive: Hearing grossly normal Neck: Positive: Supple Respiratory: Positive: No respiratory distress, No accessory muscle use Cardiovascular: Positive: Pulses Normal Abdomen Description: Positive: Nontender, Soft Musculoskeletal: Positive: No Edema Neurological: Positive: Alert Psychological: Positive: Age Appropriate Behavior Skin: Negative: rashes UC Physical Exam Vital Signs On Initial Exam: Initial Vitals Temp Pulse Resp BP Pulse Ox 98.3 F 70 12 131/81 100 04/11/17 21:13 04/11/17 21:13 04/11/17 21:13 04/11/17 21:13 04/11/17 21:13 - Genitalia Exam Female Genitourinary: Normal External Exam, Cervix Closed, Other - MUCUS LIKE WHITE DISCHARGE IN VAGINAL VAULT. NO CMT. NO UTERINE OR ADNEXAL TENDERNESS. Complaint Female Dx - Differential Dx/Diagnosis Provider Diagnoses: VAGINITIS Discharge - Discharge Plan Condition: Stable Disposition: HOME Prescriptions: Metronidazole [Flagyl 500 MG TAB] 500 mg PO BID #13 tab Patient Education Materials: Bacterial Vaginosis (ED), Vaginitis (ED) Referrals: Dinorah Newberry NP [Primary Care Provider] - If Needed Additional Instructions: VAGINAL SWAB FOR BV, YEAST AND TRICHOMONAS TODAY. START FLAGYL FOR EMPIRIC TREATMENT FOR BV. WE WILL CALL YOU IF WE NEED TO MODIFY YOUR MEDICATION. NO ALCOHOL WHILE ON THIS ANTIBIOTIC. SEEK FOLLOW-UP IF NOT IMPROVING.
[2017-04-11] MEDS ORDERED: metroNIDAZOLE TAB* 250 MG PO ONE (23:00)
--- NOTE | 2017-04-14 07:34 | UC ---
Progress - Progress Note Progress Note: please inform pt of test negative for trich, armin and gardenerella. so, we dont have a good reason to recommend that pt continue abx. pt should f/u with pcp if sx persist or new ones develop.
== END 2017-04-11 23:05 | disposition home or self-care (01) ==
LOC: UCEAST 19:49
DX: N76.0 Acute vaginitis (principal); J45.909 Unspecified asthma, uncomplicated; Z87.891 Personal history of nicotine dependence
CPT/HCPCS: 87480; 87510; 87660; 99212; A9270-GY; G0463

== ENCOUNTER 2017-06-18 15:09 | Emergency (ER) | payer OTHER ==
--- NOTE | 2017-06-18 15:20 | UC ---
Throat Pain/Nasal Vish HPI - HPI Summary HPI Summary: Pt presents with sinus congestion and cough. She tells me that she had her tonsils removed back in February of this year for reoccurring strep throat. Over the last week she has developed a dry cough with chest tightness, b/l ear pain, and sinus pressure/congestion. She has been using her albuterol inhaler with mild relief - but not as much relief as it usually gives her from her asthma. She has not tried anything OTC. She has felt warm, but has not taken her temp. Denies headache, ST, SOB, chest pain, abdominal pain, N/V/D/C, or dizziness. - History of Current Complaint Stated Complaint: THROAT PAIN Time Seen by Provider: 06/18/17 15:20 Hx Obtained From: Patient Hx Last Menstrual Period: 2 wks ago ?: No Onset/Duration: Gradual Onset Severity: Mild Cough: Nonproductive - Allergies/Home Medications Allergies/Adverse Reactions: Allergies Allergy/AdvReac Type Severity Reaction Status Date / Time Seasonal Allergy Congestion Uncoded 06/18/17 15:32 PMH/Surg Hx/FS Hx/Imm Hx Previously Healthy: Yes Respiratory History: Asthma - Surgical History Surgical History: Yes Surgery Procedure, Year, and Place: Tubes in ears as a child. wisdom teeth, late teens. T&A February 2017 - Family History Known Family History: Positive: Respiratory Disease Negative: Hypertension, Diabetes, Renal Disease - Social History Alcohol Use: Occasionally Alcohol Amount: 1-2 drinks a week Substance Use Type: None Smoking Status (MU): Former Smoker Type: Cigarettes Amount Used/How Often: smoked for approx 4 yrs, smoked 1 pk a week Length of Time of Smoking/Using Tobacco: 5 years Have You Smoked in the Last Year: Yes When Did the Patient Quit Smoking/Using Tobacco: 2014 - Immunization History Most Recent Influenza Vaccination: doesn't get Review of Systems Constitutional: Negative Skin: Negative Eyes: Negative ENT: Sore Throat, Ear Ache, Nasal Discharge, Sinus Congestion, Sinus Pain/ Tenderness Respiratory: Cough Cardiovascular: Negative Gastrointestinal: Negative All Other Systems Reviewed And Are Negative: Yes Physical Exam Triage Information Reviewed: Yes Appearance: Well-Appearing, Well-Nourished Vital Signs Reviewed: Yes Eyes: Positive: Conjunctiva Clear. Negative: Conjunctiva Inflamed, Discharge ENT: Positive: Hearing grossly normal, Pharyngeal erythema, Nasal congestion, Nasal drainage, TMs normal, Sinus tenderness, Uvula midline. Negative: TM bulging, TM dull, TM red, Tonsillar swelling, Tonsillar exudate Neck: Positive: Supple, Nontender, No Lymphadenopathy Respiratory: Positive: Chest non-tender, No respiratory distress, No accessory muscle use, Wheezing - Throughout. Negative: Crackles, Rhonchi, Stridor Cardiovascular: Positive: RRR, No Murmur, Pulses Normal Neurological: Positive: Alert Psychological: Positive: Age Appropriate Behavior Skin: Negative: rashes Re-Evaluation - Re-Evaluation First Eval Re-Evaluation Time: 16:30 Change: Improved - Lung sounds improved. No wheezing. Throat Pain/Nasal Course/Dx - Course Course Of Treatment: POC strep - negative. Duoneb here - feels much better after neb. No wheezing on recheck of lungs. Sinusitis - amoxicillin for 7 days. Bronchitis - nebulizer prn and use inhaler at home. Prednisone 40mg for 5 days - Differential Dx/Diagnosis Differential Diagnosis/HQI/PQRI: Influenza, Mononucleosis, Peritonsillar Abscess , Sinusitis, Tonsillitis, URI Provider Diagnoses: Sinusitis. Acute Bronchitis Discharge - Discharge Plan Condition: Stable Disposition: HOME Prescriptions: Albuterol/Ipratropium NEB.ZACHARIAH* [Duoneb (Albuterol 2.5 MG/Ipratropium 0.5 MG)] 1 neb INH Q6H PRN #10 neb.zachariah PRN Reason: Wheezing Amoxicillin PO (*) [Amoxicillin 500 MG CAP*] 500 mg PO Q12H #20 cap Nebulizers [Nebulizer] 1 mis XX DAILY PRN #1 mis PRN Reason: Wheezing predniSONE TAB* [Deltasone TAB*] 40 mg PO DAILY #20 tab Respiratory Therapy Supplies [Nebulizer Kit/Tubing/Mout] 1 kit .SEE ORDER . DIRECTED #1 kit Patient Education Materials: Sinusitis (ED), Acute Bronchitis (ED) Referrals: Dinorah Newberry NP [Primary Care Provider] - Additional Instructions: If you develop a fever, SOB, chest pain, new or worsening symptoms - please call your PCP or go to the ED. Your blood pressure was high at todays visit. Please see your primary provider within 4 weeks for recheck and re-evaluation.
[2017-06-18 15:31] VITALS: BP 136/91
[2017-06-18] MEDS ORDERED: Albuterol/Ipratropium NEB.SOL* Albuterol 2.5 MG/Ipratropium 0.5 MG 3 ML INH ONE (15:44)
== END 2017-06-18 16:38 | disposition home or self-care (01) ==
LOC: UCEAST 15:09
DX: J32.9 Chronic sinusitis, unspecified (principal); J20.9 Acute bronchitis, unspecified; J45.909 Unspecified asthma, uncomplicated; Z87.891 Personal history of nicotine dependence
CPT/HCPCS: 87651; 99212; A9270-GY; G0463

== ENCOUNTER 2017-06-27 20:26 | Emergency (ER) | payer OTHER ==
[2017-06-27 20:31] VITALS: BP 130/72
--- NOTE | 2017-06-27 21:00 | UC ---
Complaint Female HPI - HPI Summary HPI Summary: Abdomen feels bloated and firm, has been urinating more than usual, no nausea or vomiting on an antibiotic for bronchitis, does seem to have vaginal discharge Has been very constipated and had a very hard small stool this morning - History Of Current Complaint Chief Complaint: UCGU Stated Complaint: POSSIBLE UTI Time Seen by Provider: 06/27/17 20:41 Hx Obtained From: Patient Hx Last Menstrual Period: 06/16/17 ?: No Onset/Duration: Gradual Onset, Lasting Days, Still Present Timing: Constant Severity Initially: Moderate Severity Currently: Moderate Aggravating Factor(s): Nothing Alleviating Factor(s): Nothing Associated Signs And Symptoms: Positive: Vaginal Bleeding/Discharge - Allergies/Home Medications Allergies/Adverse Reactions: Allergies Allergy/AdvReac Type Severity Reaction Status Date / Time Seasonal Allergy Congestion Uncoded 06/18/17 15:32 PMH/Surg Hx/FS Hx/Imm Hx Previously Healthy: Yes - Surgical History Surgical History: Yes Surgery Procedure, Year, and Place: Tubes in ears as a child. wisdom teeth, late teens. T&A February 2017 - Family History Known Family History: Positive: Respiratory Disease Negative: Hypertension, Diabetes, Renal Disease - Social History Occupation: Employed Full-time Lives: With Family Alcohol Use: Occasionally Alcohol Amount: 1-2 drinks a week Substance Use Type: None Smoking Status (MU): Former Smoker Type: Cigarettes Amount Used/How Often: smoked for approx 4 yrs, smoked 1 pk a week Length of Time of Smoking/Using Tobacco: 5 years Have You Smoked in the Last Year: Yes When Did the Patient Quit Smoking/Using Tobacco: 2014 - Immunization History Most Recent Influenza Vaccination: doesn't get Review of Systems Constitutional: Negative Skin: Negative Eyes: Negative ENT: Negative Respiratory: Negative Cardiovascular: Negative Gastrointestinal: Abdominal Pain Genitourinary: Frequency, Vaginal/Penile Discharge Motor: Negative Neurovascular: Negative Musculoskeletal: Negative Neurological: Negative Psychological: Negative Is Patient Immunocompromised?: No All Other Systems Reviewed And Are Negative: Yes Physical Exam Triage Information Reviewed: Yes Appearance: Well-Appearing, No Pain Distress, Well-Nourished Vital Signs: Initial Vital Signs Temp 97.4 F 06/27/17 20:27 Pulse 82 06/27/17 20:27 Resp 18 06/27/17 20:27 BP 130/72 06/27/17 20:27 Pulse Ox 100 06/27/17 20:27 Vital Signs Reviewed: Yes Eye Exam: Normal Eyes: Positive: Conjunctiva Clear ENT Exam: Normal ENT: Positive: Normal ENT inspection, Hearing grossly normal. Negative: Nasal congestion, Nasal drainage, Trismus, Muffled voice, Hoarse voice Dental Exam: Normal Neck exam: Normal Neck: Positive: Supple, Nontender Respiratory Exam: Normal Respiratory: Positive: Chest non-tender, No respiratory distress, No accessory muscle use Cardiovascular Exam: Normal Cardiovascular: Positive: RRR, Pulses Normal, Brisk Capillary Refill Abdominal Exam: Normal Abdomen Description: Positive: Nontender, No Organomegaly, Soft, Other: - suprapubic discomfort. Negative: CVA Tenderness (R), CVA Tenderness (L) Bowel Sounds: Positive: Present Musculoskeletal Exam: Normal Musculoskeletal: Positive: Strength Intact, ROM Intact, No Edema Neurological Exam: Normal Neurological: Positive: Alert, Muscle Tone Normal Psychological Exam: Normal Skin Exam: Normal Complaint Female Dx - Course Course Of Treatment: options reviewed with patient regarding x-ray, pelvic-- patient believes she would like to try Miralax for constipation first prior to other interventions - Differential Dx/Diagnosis Provider Diagnoses: Constipation, abdomen pain Discharge - Discharge Plan Condition: Stable Disposition: HOME Patient Education Materials: Polyethylene Glycol 3350 (By mouth), Constipation (ED), High Fiber Diet (ED) Referrals: Dinorah Newberry NP [Primary Care Provider] - If Needed
== END 2017-06-27 21:30 | disposition home or self-care (01) ==
LOC: UCEAST 20:26
DX: K59.00 Constipation, unspecified (principal); R10.9 Unspecified abdominal pain; Z32.02 Encounter for pregnancy test, result negative; Z87.891 Personal history of nicotine dependence
CPT/HCPCS: 81003; 84702; 87086; 99211; G0463

== ENCOUNTER 2017-10-03 13:03 | Emergency (ER) | payer OTHER ==
--- NOTE | 2017-10-03 14:17 | UC ---
Back Pain HPI - HPI Summary HPI Summary: 26 y/o female presents to the urgent care c/o pain in L lower back that shoots down mostly L leg since yesterday morning. Pt reports she was moving some boxes from high position to low position and suffered injury. She "heard tearing, popping". she took an Ibuprofen PO to alleviate pain. However this morning pain is worse 8/10 specially to sit down or getting up w/ mild numbness around the Rt lower leg. Pt denies fever, fecal or urinary incontinence, urinary symptoms, saddle anesthesia, SOB, chest pain, abdominal pain, N/V/D. Pt also states she hasn't done a BM for the past 2 day. - History of Current Complaint Chief Complaint: UCBackPain Stated Complaint: BACK PAIN Time Seen by Provider: 10/03/17 14:16 Hx Obtained From: Patient Hx Last Menstrual Period: 09/08/17 ?: No Onset/Duration: Gradual Onset, Lasting Days - 1 day, Still Present, Worse Since - this morning Timing: Constant, Lasting Days - 1 day Severity Initially: Moderate Severity Currently: Moderate Pain Intensity: 8 Pain Scale Used: 0-10 Numeric Back Pain: Is Discrete @ - lower back pain, Radiates To - B/L hips and legs Character: Sharp, Spasmodic Aggravating Factor(s): Lifting, Bending Alleviating Factor(s): Rest, OTC Meds, Other - laying down Associated Signs And Symptoms: Positive: Negative. Negative: Swelling, Redness , Bruising, Fever, Weakness, Numbness, Tingling, Abdominal Pain, Flank Pain, Bladder Incontinence, Bowel Incontinence, Pain with Weight Bearing - Risk Factors AAA Risk Factors: Negative TAD Risk Factors: Negative Cauda Equina Risk Factors: Negative Epidural Abscess Risk Factors: Negative - Allergies/Home Medications Allergies/Adverse Reactions: Allergies Allergy/AdvReac Type Severity Reaction Status Date / Time Seasonal Allergy Congestion Uncoded 10/03/17 13:16 PMH/Surg Hx/FS Hx/Imm Hx Previously Healthy: Yes - Pt denies PMHX - Surgical History Surgical History: Yes Surgery Procedure, Year, and Place: Tubes in ears as a child. wisdom teeth, late teens. T&A February 2017 - Family History Known Family History: Positive: None - Pt denies FMHX Negative: Hypertension, Diabetes, Renal Disease - Social History Occupation: Student Lives: With Family Alcohol Use: Occasionally Alcohol Amount: 1-2 drinks a week Substance Use Type: None Smoking Status (MU): Former Smoker Type: Cigarettes Amount Used/How Often: smoked for approx 4 yrs, smoked 1 pk a week Length of Time of Smoking/Using Tobacco: 5 years Have You Smoked in the Last Year: Yes When Did the Patient Quit Smoking/Using Tobacco: 2014 - Immunization History Most Recent Influenza Vaccination: doesn't get Vaccination Up to Date: Yes Review of Systems Constitutional: Negative Skin: Negative Eyes: Negative ENT: Negative Respiratory: Negative Cardiovascular: Negative Gastrointestinal: Other - constipation Genitourinary: Negative Motor: Negative Neurovascular: Negative Musculoskeletal: Decreased ROM - lower back, Other: - lower back pain s/p moving boxes Neurological: Negative Psychological: Negative Is Patient Immunocompromised?: No All Other Systems Reviewed And Are Negative: Yes Physical Exam - Summary Physical Exam Summary: Vital Signs Reviewed: Yes Appearance: Well-Appearing, Well-Nourished, Thin female laying in the examining table w/o any apparent distress. Eyes: Positive: Conjunctiva Clear - PERRLA, EOMI. ENT: Positive: Normal ENT inspection, Hearing grossly normal, Pharynx normal, TMs normal, Uvula midline Neck: Positive: Supple, Nontender, No Lymphadenopathy Respiratory: Positive: Chest non-tender, Lungs clear, Normal breath sounds, No respiratory distress Cardiovascular: Positive: RRR, No Murmur, Pulses Normal, Brisk Capillary Refill Abdomen Description: Positive: Nontender, No Organomegaly, Soft. Negative: CVA Tenderness (R), CVA Tenderness (L) Bowel Sounds: Positive: Present Musculoskeletal: Positive: Strength Intact, Other: - BACK: Patient walked into the urgent care room with symmetric ambulation, No signs of limping, antalgic, able to bear weight. No signs of trauma, No masses palpated. Point tenderness at the level of L5-S1, No CVAT, no flank ecchymosis . No sacroiliac notch tenderness, No saddle anesthesia.ROM: limited due to pain, Straight Leg Raise: negative. Patellar reflexes: brisk, symmetric Muscle strength lower extremities. Dorsiflexion/ plantar flexion of ankles. Lower extremities: Femoral , popliteal, posterior tibial, and dorsalis pedis pulses WNL. Pt refuse rectal exam Neurological: Positive: Alert, Muscle Tone Normal Psychological Exam: Normal Skin Exam: Normal Triage Information Reviewed: Yes Vital Signs: Initial Vital Signs Temp 98 F 10/03/17 13:17 Pulse 79 10/03/17 13:17 Resp 20 10/03/17 13:17 BP 127/88 10/03/17 13:17 Pulse Ox 99 10/03/17 13:17 Back Pain Course/Dx - Course Course Of Treatment: 26 y/o female presents to the urgent care c/o pain in L lower back that shoots down mostly L leg since yesterday morning. Pt reports she was moving some boxes from high position to low position and suffered injury. She "heard tearing, popping". she took an Ibuprofen PO to alleviate pain. However this morning pain is worse 8/ specially to sit down or getting up w/ mild numbness around the Rt lower leg. Pt denies fever, fecal or urinary incontinence, urinary symptoms, saddle anesthesia, SOB, chest pain, abdominal pain, N/V/D. Pt also states she hasn't done a BM for the past 2 day. Hx obtained. PE: Point tenderness at the level of the L5-S1 and left paraspinal muscle spasm at the same level on examination. LMP:09/08/2017. Pt declines , states no sexual activity lately. Lumbosacral X-ray ordered, Impression: No acute osseous injury observed. PT Rx Ibuprofen PO ordered at the clinic. Given by nurse. Pt tolerated well medication pain decrease. Pt Rx Ibuprofen PO, flexeril PO and given a PT referral. Patient was instructed to the f/u wit orthopedic in 1 week if symptoms do not improve or worsen. Pt also Rx Miralax PO for constipation. Advised increase fluid intake. Patient understands and agrees. Patient is able to ambulate freely w/o aid or limp. Plan of care was discussed with the patient and patient understands and agrees. All questions were answered at patient satisfaction. Pt left clinic hemodynamically stable. - Differential Dx/Diagnosis Differential Diagnosis/HQI/PQRI: Herniated Disc, Renal Colic, Strain, Sprain, Other - Muscle spasm, UTI, constipation Provider Diagnoses: 1- Acute lower back pain. 2-Back spasm. 3- Constipation Discharge - Discharge Plan Condition: Stable Disposition: HOME Prescriptions: Cyclobenzaprine TAB* [Flexeril 10 MG TAB*] 10 mg PO TID PRN #15 tab PRN Reason: Spasms - Back Ibuprofen TAB* [Motrin TAB* 800 MG] 800 mg PO Q6H PRN #30 tab PRN Reason: Pain Polyethylene Glycol 3350* [Miralax*] 17 gm PO DAILY PRN #1 bottle PRN Reason: Constipation Patient Education Materials: Constipation (ED), Acute Low Back Pain (ED), Muscle Spasm (ED) Referrals: Paul Wilkes MD [Medical Doctor] - 10/07/17 Dinorah Newberry NP [Primary Care Provider] - 3 Days Additional Instructions: 1- Please take Ibuprofen PO as directed after meals for pain. 2- Take Flexeril PO as directed for muscle spasm. Please do not drive while taking the medication. 3- Wear a back support. Avoid strenuous exercise of heavy lifting. 4- Please follow up with Orthopedic Dr Wilkes or your PCP in 5 days if not improvement of symptoms, for further management.
[2017-10-03] MEDS ORDERED: Ibuprofen TAB* 400 MG PO ONE (14:51)
--- NOTE | 2017-10-03 15:30 | RAD ---
Indication: Back pain. 5 views of lumbar spine demonstrate vertebral bodies to be normal in height. Disc spaces all well-preserved. Pedicles appear intact. Transverse processes are unremarkable. IMPRESSION: No fracture of the lumbar spine is noted.
[2017-10-03 15:51] VITALS: BP 121/75
== END 2017-10-03 16:02 | disposition home or self-care (01) ==
LOC: UCEAST 13:03
DX: M54.5 Low back pain (principal); M62.830 Muscle spasm of back; K59.00 Constipation, unspecified; Z87.891 Personal history of nicotine dependence
CPT/HCPCS: 72110; 99212; A9270-GY; G0463

== ENCOUNTER 2018-10-07 19:20 | Emergency (ER) | payer OTHER ==
[2018-10-07 20:09] VITALS: BP 120/70
--- NOTE | 2018-10-07 21:39 | ED ---
GI/ HPI - HPI Summary HPI Summary: 27 yo c/o severe vag itching, redness, and creamy white non smelling d/c x 1.5 weeks after taking 1 month of abx for acne condition - History of Current Complaint Chief Complaint: UCGU Time Seen by Provider: 10/07/18 21:04 Stated Complaint: PAINFUL URINATION Hx Obtained From: Patient Hx Last Menstrual Period: [id number] Onset/Duration: Started Weeks Ago Timing: Constant Severity: Moderate Current Severity: Moderate Pain Intensity: 8 - Allergy/Home Medications Allergies/Adverse Reactions: Allergies Allergy/AdvReac Type Severity Reaction Status Date / Time Seasonal Allergy Congestion Uncoded 10/07/18 20:10 Home Medications: Home Medications Ibuprofen TAB* [Motrin TAB* 800 MG] 200 mg PO Q6H PRN 10/07/18 [History Confirmed 10/07/18] PMH/Surg Hx/FS Hx/Imm Hx Previously Healthy: Yes Endocrine/Hematology History: Denies: Hx Diabetes, Hx Thyroid Disease Cardiovascular History: Denies: Hx Congestive Heart Failure, Hx Hypertension Respiratory History: Reports: Hx Asthma - has prn inhaler Denies: Hx Chronic Obstructive Pulmonary Disease (COPD) GI History: Denies: Hx Ulcer History: Denies: Hx Renal Disease Sensory History: Reports: Hx Contacts or Glasses - reading Denies: Hx Hearing Aid Opthamlomology History: Reports: Hx Contacts or Glasses - reading Neurological History: Reports: Other Neuro Impairments/Disorders - CONCUSSIONS x 5, pt states she is accident prone, last one 08/2013 Psychiatric History: Reports: Hx Anxiety - Resolved, Hx Depression - Resolved - Surgical History Surgery Procedure, Year, and Place: Tubes in ears as a child. wisdom teeth, late teens. T&A February 2017 Hx Anesthesia Reactions: No Infectious Disease History: No Infectious Disease History: Denies: Hx Clostridium Difficile, Hx Hepatitis, Hx Human Immunodeficiency Virus (HIV), Hx of Known/Suspected MRSA, Hx Shingles, Hx Tuberculosis, Hx Known/ Suspected VRE, Hx Known/Suspected VRSA, History Other Infectious Disease, Traveled Outside the [place] in Last 30 Days - Family History Known Family History: Positive: None - Pt denies FMHX, Respiratory Disease Negative: Hypertension, Diabetes, Renal Disease - Social History Alcohol Use: None Alcohol Amount: 1-2 drinks a week Hx Substance Use: No Substance Use Type: Reports: None Hx Tobacco Use: Yes Smoking Status (MU): Former Smoker Type: Cigarettes Amount Used/How Often: smoked for approx 4 yrs, smoked 1 pk a week Length of Time of Smoking/Using Tobacco: 5 years Have You Smoked in the Last Year: Yes Review of Systems - ROS Summary Review of Systems Summary: Constitutional: Negative Skin: Negative Eyes: Negative ENT: Negative Cardiovascular: Negative Respiratory: Negative Gastrointestinal: Negative Genitourinary: yeast infection Musculoskeletal: Negative Neurological: Negative Psychological: Normal All Other Systems Reviewed And Are Negative: Yes All Other Systems Reviewed And Are Negative: Yes Physical Exam - Summary Physical Exam Summary: Vital Signs Reviewed: Yes Appearance: Positive: No Pain Distress Skin: Positive: Warm Head/Face: Positive: Normal Head/Face Inspection Eyes: Positive: Normal ENT: Positive: Normal ENT inspection Neck: Positive: Supple Respiratory/Lung Sounds: Positive: Clear to Auscultation. Negative: Rales, Rhonchi, Wheezes Cardiovascular: Positive: Normal, RRR, S1, S2 Abdomen Description: Positive: Nontender Musculoskeletal: Positive: Normal Neurological: Positive: Normal, CN Intact II-III Psychiatric: Positive: Normal, Affect/Mood Appropriate : Declined vaginal exam Vital Signs On Initial Exam: Initial Vitals Temp Pulse Resp BP Pulse Ox 36.6 C 77 16 120/70 100 10/07/18 20:04 10/07/18 20:04 10/07/18 20:04 10/07/18 20:04 10/07/18 20:04 Diagnostics - Vital Signs Vital Signs Temp Pulse Resp BP Pulse Ox 10/07/18 20:04 36.6 C 77 16 120/70 100 - Laboratory Lab Statement: Any lab studies that have been ordered have been reviewed, and results considered in the medical decision making process. GIGU Course/Dx - Diagnoses Provider Diagnoses: Yeast vaginitis Discharge - Sign-Out/Discharge Documenting (check all that apply): Patient Departure All imaging exams completed and their final reports reviewed: Yes - Discharge Plan Condition: Stable Disposition: HOME Prescriptions: Fluconazole 150 MG TAB* [Diflucan 150 MG TAB*] 150 mg PO ONCE 2 Days #2 tablet MDD 1 Patient Education Materials: Yeast Infection (ED) Referrals: Dinorah Newberry NP [Primary Care Provider] - - Billing Disposition and Condition Condition: STABLE Disposition: Home
== END 2018-10-07 21:35 | disposition home or self-care (01) ==
LOC: UCEAST 19:20
DX: B37.3 Candidiasis of vulva and vagina (principal); Z87.891 Personal history of nicotine dependence; Z91.09 Other allergy status, other than to drugs and biological substances
CPT/HCPCS: 99212; G0463

== ENCOUNTER 2018-10-14 19:06 | Emergency (ER) | payer OTHER ==
[2018-10-14 19:21] VITALS: BP 107/69
--- NOTE | 2018-10-14 20:22 | UC ---
FLU HPI - HPI Summary HPI Summary: 27 year old female with 3 day history of fever, chills, malaise, body aches, nasal congestion, runny nose, sore throat, and productive cough. Notes mild SOB and occasional wheezing. Has history of asthma and has been using her rescue inhaler 4-5 times a day. Denies ear pain, dysphagia, chest pain, abdominal pain , nausea, vomiting, or diarrhea. - History of Current Complaint Chief Complaint: UCGeneralIllness Stated Complaint: SORE THROAT Time Seen by Provider: 10/14/18 20:17 Hx Obtained From: Patient Hx Last Menstrual Period: [id number] Pain Intensity: 6 - Allergy/Home Medications Allergies/Adverse Reactions: Allergies Allergy/AdvReac Type Severity Reaction Status Date / Time Seasonal Allergy Congestion Uncoded 10/14/18 19:21 PMH/Surg Hx/FS Hx/Imm Hx Previously Healthy: Yes Respiratory History: Asthma - Surgical History Surgical History: Yes Surgery Procedure, Year, and Place: Tubes in ears as a child. wisdom teeth, late teens. T&A February 2017 - Family History Known Family History: Positive: Non-Contributory - Social History Occupation: Employed Full-time Lives: Alone Alcohol Use: Occasionally Alcohol Amount: 1-2 drinks a week Substance Use Type: None Smoking Status (MU): Former Smoker Type: Cigarettes Amount Used/How Often: smoked for approx 4 yrs, smoked 1 pk a week Length of Time of Smoking/Using Tobacco: 5 years Have You Smoked in the Last Year: Yes When Did the Patient Quit Smoking/Using Tobacco: 2014 - Immunization History Most Recent Influenza Vaccination: doesn't get Vaccination Up to Date: Yes Review of Systems All Other Systems Reviewed And Are Negative: Yes Constitutional: Positive: Fever, Chills, Fatigue Skin: Negative: Rash Eyes: Negative: Drainage, Eye Redness ENT: Positive: Sore Throat, Nasal Discharge, Sinus Congestion. Negative: Ear Ache, Sinus Pain/Tenderness Respiratory: Positive: Shortness Of Breath, Cough, Other - Wheezing Cardiovascular: Negative: Palpitations, Chest Pain Gastrointestinal: Negative: Abdominal Pain, Vomiting, Diarrhea, Nausea Genitourinary: Positive: Negative Musculoskeletal: Positive: Negative Neurological: Positive: Negative Is Patient Immunocompromised?: No Physical Exam - Summary Physical Exam Summary: GENERAL APPEARANCE: Well developed, well nourished, alert and cooperative, and appears to be in no acute distress. EYES: Conjunctiva clear. No drainage. Vision is grossly intact. EARS: External auditory canals and tympanic membranes clear, hearing grossly intact. NOSE: Moderate nasal congestion. No nasal discharge. THROAT: Pharyngeal erythema. Surgically absent tonsils. Uvula midline. Oral cavity normal. Teeth and gingiva in good general condition. NECK: Neck supple, non-tender without lymphadenopathy. CARDIAC: Normal S1 and S2. No S3, S4 or murmurs. Rhythm is regular. There is no peripheral edema, cyanosis or pallor. Extremities are warm and well perfused. Capillary refill is less than 2 seconds. Peripheral pulses intact. LUNGS: Clear to auscultation without rales, rhonchi, wheezing or diminished breath sounds. Loose non-productive cough. ABDOMEN: Positive bowel sounds. Soft, nondistended, nontender. No guarding or rebound. No masses or hepatosplenomegally. MUSKULOSKELETAL: ROM intact to all extremities. No joint erythema or tenderness. Normal muscular development. Normal gait. SKIN: Skin normal color, texture and turgor with no lesions or eruptions. Triage Information Reviewed: Yes Vital Signs: Initial Vital Signs Temp 98.8 F 10/14/18 19:16 Pulse 78 10/14/18 19:16 Resp 19 10/14/18 19:16 BP 107/69 10/14/18 19:16 Pulse Ox 100 10/14/18 19:16 Vital Signs Reviewed: Yes Flu Course/Dx - Course Course Of Treatment: 27 year old female with 3 day history of fever, chills, malaise, body aches, nasal congestion, runny nose, sore throat, and productive cough. Notes mild SOB and occasional wheezing. Has history of asthma and has been using her rescue inhaler 4-5 times a day. Denies ear pain, dysphagia, chest pain, abdominal pain , nausea, vomiting, or diarrhea. Afebrile. VSS. Exam remarkable for moderate nasal congestion, pharyngeal erythema with surgically absent tonsils, and loose nonproductive cough. Bilateral breath sounds clear. Rapid strep test was negative. History and exam are consistent with influenza vs viral URI. Since lung sounds are clear and oxygen saturation normal recommending symptomatic treatment at this time with continued use of her albuterol inhaler or nebulizer as needed. She is to follow up with her primary care provider in 5 days if symptoms persist. Anticipatory guidance and warning symptoms reviewed with patient. Verbalizes understanding and agrees with POC. - Differential Dx/Diagnosis Differential Diagnosis/HQI/PQRI: Bronchitis, Influenza, Pneumonia, Upper Respiratory Infection, Other - Pharyngitis Provider Diagnosis: Influenza Discharge - Sign-Out/Discharge Documenting (check all that apply): Patient Departure All imaging exams completed and their final reports reviewed: No Studies - Discharge Plan Condition: Stable Disposition: HOME Prescriptions: Benzonatate CAP* [Tessalon 100 MG CAP*] 100 mg PO TID PRN #30 cap PRN Reason: Cough Patient Education Materials: Influenza (ED) Forms: *Work Release Referrals: Dinorah Newberry NP [Primary Care Provider] - 5 Days (Follow up in 5-7 days if no improvement in symptoms.) Additional Instructions: The rapid strep test performed in the clinic today was negative for strep throat. Your history and exam are consistent with influenza or another viral upper respiratory infection. Get plenty of rest. Drink plenty of fluids to avoid dehydration especially if you are running any fever. Take over the counter acetaminophen (Tylenol) or ibuprofen (Advil, Motrin) according to directions as needed for pain or fever. Use over the counter decongestant such as Sudafed according to directions for the congestion. Continue to use your albuterol inhaler or nebulizer as directed for any shortness of breath or wheezing. Take Tessalon Perles 1 cap every 8 hours as needed for cough. Use salt water gargles several times a day if you have a sore throat. You may also use Chloraseptic spray or Cepacol lonzenges according to directions which contain a numbing medication and can provide some temporary relief from your sore throat. Follow up with your primary care provider in 5 days if symptoms persist. Seek immediate medical attention in the emergency room if you have fever greater than 100.5 F despite taking acetaminophen or ibuprofen, have chest pain , difficulty breathing, are unable to swallow, or have any worsening of symptoms. - Billing Disposition and Condition Condition: STABLE Disposition: Home
[2018-10-14] MEDS ORDERED: Benzonatate CAP* 100 MG PO ONE (20:42)
== END 2018-10-14 21:00 | disposition home or self-care (01) ==
LOC: UCEAST 19:06
DX: J11.1 Influenza due to unidentified influenza virus with other respiratory manifestations (principal); J45.909 Unspecified asthma, uncomplicated; Z87.891 Personal history of nicotine dependence
CPT/HCPCS: 87651; 99212; A9270-GY; G0463

== ENCOUNTER 2018-10-22 11:03 | Emergency (ER) | payer OTHER ==
--- NOTE | 2018-10-22 11:15 | UC ---
Eye Complaint HPI - HPI Summary HPI Summary: 27 yo female presents with RIGHT lower eyelid redness, pain, and eye drainage for the last week. She tells me that the redness started close to her medial canthus about a week ago accompanied by some clear eye drainage at bedtime. This has persisted for the last week. Over the last 2-3 days has noticed some redness spreading on her lower eyelid that is mildly tender to touch. She does not wear contacts or make-up. Denies fever, chills, vision changes, eye trauma, or FB into eye. - History of Current Complaint Stated Complaint: EYE COMPLAINT Time Seen by Provider: 10/22/18 11:14 Hx Obtained From: Patient Hx Last Menstrual Period: [id number] Onset/Duration: Gradual Onset Timing: Constant Severity Initially: Mild Severity Currently: Mild Pain Intensity: 3 Pain Scale Used: 0-10 Numeric - Allergies/Home Medications Allergies/Adverse Reactions: Allergies Allergy/AdvReac Type Severity Reaction Status Date / Time Seasonal Allergy Congestion Uncoded 10/22/18 11:23 PMH/Surg Hx/FS Hx/Imm Hx - Additional Past Medical History Additional PMH: None - Surgical History Surgical History: Yes Surgery Procedure, Year, and Place: Tubes in ears as a child. wisdom teeth, late teens. T&A February 2017 - Family History Known Family History: Positive: Non-Contributory - Social History Occupation: Employed Full-time Lives: With Family Alcohol Use: Occasionally Alcohol Amount: 1-2 drinks a week Substance Use Type: None Smoking Status (MU): Former Smoker Type: Cigarettes Amount Used/How Often: smoked for approx 4 yrs, smoked 1 pk a week Length of Time of Smoking/Using Tobacco: 5 years Have You Smoked in the Last Year: Yes When Did the Patient Quit Smoking/Using Tobacco: 2014 - Immunization History Most Recent Influenza Vaccination: doesn't get Vaccination Up to Date: Yes Review of Systems All Other Systems Reviewed And Are Negative: Yes Constitutional: Positive: Negative Skin: Positive: Negative Eyes: Positive: Drainage, Eye Redness ENT: Positive: Negative Respiratory: Positive: Negative Cardiovascular: Positive: Negative Neurological: Positive: Negative Psychological: Positive: Negative Physical Exam - Summary Physical Exam Summary: GENERAL: WDWN. No pain distress. SKIN: No rashes, sores, lesions, or open wounds. HEENT: Head: AT/NC Eyes: EOM intact. PERRLA. RIGHT EYE: No scleral injection. Conjunctiva without erythema or inflammation. Mild clear discharge at medial canthus. Mild erythema extending from medial canthus to lateral 2/3 of lower eyelid. No stye appreciated. No warmth or edema. Nose: NTTP maxillary and frontal sinus. NECK: Supple. Nontender. No lymphadenopathy. CHEST: No accessory muscle use. Breathing comfortably and in no distress. CV: Pulses intact. Cap refill <2seconds NEURO: Alert. PSYCH: Age appropriate behavior. Triage Information Reviewed: Yes Vital Signs: Vital Signs: Temp Pulse Resp BP Pulse Ox 97.7 F 94 18 118/67 100 10/22/18 11:14 10/22/18 11:14 10/22/18 11:14 10/22/18 11:14 10/22/18 11:14 Vital Signs Reviewed: Yes Eye Complaint Course/Dx - Course Course Of Treatment: I am unsure the cause of her eyelid redness, but it appears most consistent with a blocked tear duct/lacrimal punctum that led to a mild cellulitis. Will cover her with polytrim eye drops and clindamycin po. Strongly encourage to be rechecked if symptoms not improving with 48hours. - Differential Dx/Diagnosis Provider Diagnosis: Periorbital cellulitis of right eye Discharge - Sign-Out/Discharge Documenting (check all that apply): Patient Departure All imaging exams completed and their final reports reviewed: No Studies - Discharge Plan Condition: Stable Disposition: HOME Prescriptions: Clindamycin HCl 300 mg PO TID #15 capsule Polymyx/Trimethoprim OPTH* [Polytrim OPHTH*] 1 drop RIGHT EYE QID #1 btl Patient Education Materials: Blocked Tear Duct (ED), Periorbital Cellulitis in Adults (ED) Referrals: Dinorah Newberry NP [Primary Care Provider] - Additional Instructions: If you develop a fever, shortness of breath, chest pain, new or worsening symptoms - please call your PCP or go to the ED. - Billing Disposition and Condition Condition: STABLE Disposition: Home
[2018-10-22 11:22] VITALS: BP 118/67
== END 2018-10-22 11:38 | disposition home or self-care (01) ==
LOC: UCEAST 11:03
DX: L03.213 Periorbital cellulitis (principal); Z87.891 Personal history of nicotine dependence
CPT/HCPCS: 99212; G0463

== ENCOUNTER 2019-01-16 12:34 | Emergency (ER) | payer OTHER ==
[2019-01-16 12:45] VITALS: BP 107/72
--- NOTE | 2019-01-16 13:05 | UC ---
Complaint Female HPI - HPI Summary HPI Summary: started 2 weeks ago with itchy vaginal area, tried OTC monistat w/o resolve. cont to have a vaginal d/c, odor, and feels swollen on outside and inside, denies lesions or concern for STIs, sex active with male in monogomous relationship, no contraception - they are trying to conceive, LMP: 5 days ago. denies dysuria or abd pain - History Of Current Complaint Chief Complaint: UCGU Stated Complaint: UTI Time Seen by Provider: 01/16/19 12:40 Hx Obtained From: Patient Hx Last Menstrual Period: [id number] ?: No Onset/Duration: Gradual Onset Timing: Constant Severity Initially: Mild Severity Currently: Mild Pain Intensity: 2 Aggravating Factor(s): Nothing Alleviating Factor(s): Nothing Associated Signs And Symptoms: Positive: Vaginal Discharge, Genital Swelling. Negative: Fever, Genital Blisters - Allergies/Home Medications Allergies/Adverse Reactions: Allergies Allergy/AdvReac Type Severity Reaction Status Date / Time Seasonal Allergy Congestion Uncoded 01/16/19 12:45 PMH/Surg Hx/FS Hx/Imm Hx Previously Healthy: Yes - Surgical History Surgical History: Yes Surgery Procedure, Year, and Place: Tubes in ears as a child. wisdom teeth, late teens. T&A February 2017 - Family History Known Family History: Positive: Non-Contributory - Social History Occupation: Employed Full-time Lives: With Family Alcohol Use: Weekly Alcohol Amount: 1-2 drinks a week Substance Use Type: None Smoking Status (MU): Former Smoker Type: Cigarettes Amount Used/How Often: smoked for approx 4 yrs, smoked 1 pk a week Length of Time of Smoking/Using Tobacco: 5 years Have You Smoked in the Last Year: Yes When Did the Patient Quit Smoking/Using Tobacco: 2014 - Immunization History Most Recent Influenza Vaccination: doesn't get Vaccination Up to Date: Yes Review of Systems All Other Systems Reviewed And Are Negative: Yes Constitutional: Positive: Negative. Negative: Fever Skin: Positive: Negative, Other - no genital lesions. Negative: Rash Respiratory: Positive: Negative Cardiovascular: Positive: Negative Genitourinary: Positive: Vaginal/Penile Itching, Vaginal/Penile Discharge. Negative: Dysuria, Frequency, Ulceration/Lesion Neurological: Positive: Negative Psychological: Positive: Negative Is Patient Immunocompromised?: No Physical Exam Triage Information Reviewed: Yes Appearance: Well-Appearing, No Pain Distress, Well-Nourished Vital Signs: Initial Vital Signs Temp 98.5 F 01/16/19 12:42 Pulse 70 01/16/19 12:42 Resp 18 01/16/19 12:42 BP 107/72 01/16/19 12:42 Pulse Ox 100 01/16/19 12:42 Vital Signs Reviewed: Yes Respiratory Exam: Normal Respiratory: Positive: Lungs clear Cardiovascular Exam: Normal Cardiovascular: Positive: RRR Abdominal Exam: Normal Abdomen Description: Positive: Nontender, No Organomegaly, Soft. Negative: CVA Tenderness (R), CVA Tenderness (L) Pelvic Exam: Positive: Speculum Exam Normal, Discharge - thick white, cannot detect odor, Other - introitus nad labia minora appear mildly inflammed and swollen, no genital lesions detected. Negative: Lesions Neurological Exam: Normal Psychological Exam: Normal Skin Exam: Normal Skin: Negative: Rashes Complaint Female Dx - Differential Dx/Diagnosis Differential Diagnosis/HQI/PQRI: Retained Foreign Body, Sexually Transmitted Disease, Urinary Tract Infection, Other - vaginal yeast, BV Provider Diagnosis: Vaginitis Discharge - Sign-Out/Discharge Documenting (check all that apply): Patient Departure All imaging exams completed and their final reports reviewed: No Studies - Discharge Plan Condition: Good Disposition: HOME Prescriptions: Fluconazole 150 MG TAB* [Diflucan 150 MG TAB*] 150 mg PO ONCE #2 tablet Patient Education Materials: Vaginitis (ED) Referrals: Dinorah Newberry NP [Primary Care Provider] - 3 Days (if no better) Additional Instructions: use diflucan as prescribed please follow-up with culture results taken today - Billing Disposition and Condition Condition: GOOD Disposition: Home
== END 2019-01-16 13:15 | disposition home or self-care (01) ==
LOC: UCEAST 12:34
DX: N76.0 Acute vaginitis (principal); Z87.891 Personal history of nicotine dependence
CPT/HCPCS: 87480; 87510; 99212; G0463

== ENCOUNTER 2019-05-21 12:42 | Emergency (ER) | payer OTHER ==
--- NOTE | 2019-05-21 12:54 | UC ---
Respiratory Complaint HPI - HPI Summary HPI Summary: 28 yo female presents with URI symptoms. She tells me that she has a history of asthma and over the last 5 days has had dry cough, low grade fever - has not taken her temperature but has felt warm, sinus pain/pressure/congestion, and sore throat. She has been using her albuterol inhaler more often recently with good intermittent relief. She has been taking dayquill/nyquill with some relief. Denies SOB, chest pain, abdominal pain, n/v - History of Current Complaint Stated Complaint: URI Time Seen by Provider: 05/21/19 12:54 Hx Obtained From: Patient Hx Last Menstrual Period: [id number] Onset/Duration: Gradual Onset Severity Initially: Mild Severity Currently: Moderate Pain Intensity: 5 Pain Scale Used: 0-10 Numeric - Allergies/Home Medications Allergies/Adverse Reactions: Allergies Allergy/AdvReac Type Severity Reaction Status Date / Time Seasonal Allergy Congestion Uncoded 01/16/19 12:45 PMH/Surg Hx/FS Hx/Imm Hx Respiratory History: Asthma - Surgical History Surgical History: Yes Surgery Procedure, Year, and Place: Tubes in ears as a child. wisdom teeth, late teens. T&A February 2017 - Family History Known Family History: Positive: Non-Contributory - Social History Occupation: Employed Full-time Lives: With Family Alcohol Use: Weekly Alcohol Amount: 1-2 drinks a week Substance Use Type: None Smoking Status (MU): Former Smoker Type: Cigarettes Amount Used/How Often: smoked for approx 4 yrs, smoked 1 pk a week Length of Time of Smoking/Using Tobacco: 5 years Have You Smoked in the Last Year: Yes When Did the Patient Quit Smoking/Using Tobacco: 2014 - Immunization History Most Recent Influenza Vaccination: doesn't get Vaccination Up to Date: Yes Review of Systems All Other Systems Reviewed And Are Negative: No Constitutional: Positive: Fever, Fatigue, Other - Body aches Skin: Positive: Negative Eyes: Positive: Negative ENT: Positive: Sore Throat, Nasal Discharge, Sinus Congestion, Sinus Pain/ Tenderness Respiratory: Positive: Cough Cardiovascular: Positive: Negative Gastrointestinal: Positive: Negative Neurological: Positive: Negative Psychological: Positive: Negative Physical Exam - Summary Physical Exam Summary: GENERAL: NAD. WDWN. No pain distress. SKIN: No rashes, sores, lesions, or open wounds. HEENT: Head: AT/NC Eyes: EOM intact. Conjunctiva clear without inflammation or discharge. Ears: Hearing grossly normal. TMs intact, no bulging, erythema, or edema. Nose: Nasal mucosa mildly swollen and erythematous with yellow/ clear discharge. TTP maxillary sinus. Positive post nasal drip Throat: Posterior oropharynx without exudates, erythema. Uvula midline. NECK: Supple. Nontender. No lymphadenopathy. CHEST: Mild wheezing throughout. No r/r. No accessory muscle use. Breathing comfortably and in no distress. CV: RRR. Pulses intact. NEURO: Alert. PSYCH: Age appropriate behavior. Triage Information Reviewed: Yes Vital Signs: Vital Signs: Temp Pulse Resp BP Pulse Ox 97.6 F 66 20 126/85 100 05/21/19 12:55 05/21/19 12:55 05/21/19 12:55 05/21/19 12:55 05/21/19 12:55 Laboratory Tests 05/21/19 13:23 Influenza A (Rapid) Negative Influenza B (Rapid) Negative Vital Signs Reviewed: Yes Diagnostics - Radiology CXR Radiology Interpretation Completed By: Radiologist Summary of Radiographic Findings: IMPRESSION: No active cardiopulmonary disease is noted. Respiratory Course/Dx - Course Course Of Treatment: CXR negative. POC flu negative. She was given a duoneb treatment in the clinic for her symptoms with mild relief of wheezing and cough. Lung sounds improved. Suspect URI - discussed viral vs bacterial causes with the pt and she prefers to be on antibiotics at this time. - Differential Dx/Diagnosis Provider Diagnosis: URI (upper respiratory infection) Discharge ED - Sign-Out/Discharge Documenting (check all that apply): Patient Departure All imaging exams completed and their final reports reviewed: No Studies - Discharge Plan Condition: Stable Disposition: HOME Prescriptions: Amoxicillin PO (*) [Amoxicillin 875 MG (*)] 875 mg PO BID #14 tab Patient Education Materials: Sinusitis (ED), Upper Respiratory Infection (ED) Forms: *Work Release Referrals: Dinorah Newberry NP [Primary Care Provider] - Additional Instructions: If you develop a fever, shortness of breath, chest pain, new or worsening symptoms - please call your PCP or go to the ED immediately. - Billing Disposition and Condition Condition: STABLE Disposition: Home
[2019-05-21 13:03] VITALS: BP 126/85
[2019-05-21] MEDS ORDERED: Albuterol/Ipratropium NEB.SOL* Albuterol 2.5 MG/Ipratropium 0.5 MG 3 ML INH ONE (13:08)
[2019-05-21 13:35] LABS: Influenza A Molecular NEGATIVE (Negative); Influenza B Molecular NEGATIVE (Negative)
== END 2019-05-21 13:59 | disposition home or self-care (01) ==
LOC: UCEAST 12:42
DX: J06.9 Acute upper respiratory infection, unspecified (principal); J45.909 Unspecified asthma, uncomplicated; R53.83 Other fatigue; R09.89 Other specified symptoms and signs involving the circulatory and respiratory systems; Z91.09 Other allergy status, other than to drugs and biological substances; Z87.891 Personal history of nicotine dependence
CPT/HCPCS: 71046; 99212; A9270-GY; G0463

== ENCOUNTER 2019-05-31 19:53 | Emergency (ER) | payer OTHER ==
[2019-05-31 20:14] VITALS: BP 130/83
--- NOTE | 2019-05-31 20:16 | UC ---
Complaint Female HPI - HPI Summary HPI Summary: 28 y/o female presents to the urgent care c/o itchy vaginal discharge w/ a fishy odor for the past 2 weeks. Pt reports she has been taken a courses of antibiotics for the past 2 month. She was Dx First w/ sinusitis and was Tx and then w/ pneumonia and Tx w/ antibiotics. She feels mild pelvic pressure, but not urinary symptoms. Pt denies fever, flank pain, lower back pain, abdominal pain, SOB, chest pain, N/V/d. or Hx of STD's. LMP: 05/21/2019 w/ regular menstrual cycles. - History Of Current Complaint Chief Complaint: UCGU Stated Complaint: PERSONAL ISSUE Time Seen by Provider: 05/31/19 20:14 Hx Obtained From: Patient Hx Last Menstrual Period: 3 days ago Onset/Duration: Gradual Onset, Lasting Weeks - 2 weeks, Still Present, Worse Since - 2 days w/ vaginal itching and moderate vaginal discharge Timing: Constant Severity Initially: Mild Severity Currently: Moderate Pain Intensity: 0 Pain Scale Used: 0-10 Numeric Character: Burning - duirng sexual intercourse Aggravating Factor(s): [place] Alleviating Factor(s): Nothing Associated Signs And Symptoms: Positive: Vaginal Discharge. Negative: Fever, Back Pain - Risk Factors Ectopic Risk Factor: Negative Ovarian Torsion Risk Factor: Negative - Allergies/Home Medications Allergies/Adverse Reactions: Allergies Allergy/AdvReac Type Severity Reaction Status Date / Time Seasonal Allergy Congestion Uncoded 05/31/19 20:12 PMH/Surg Hx/FS Hx/Imm Hx Previously Healthy: Yes Respiratory History: Pneumonia - Surgical History Surgical History: Yes Surgery Procedure, Year, and Place: Tubes in ears as a child. wisdom teeth, late teens. T&A February 2017 - Family History Known Family History: Positive: None - Pt denies PMHX, Non-Contributory - Social History Occupation: Employed Full-time Lives: With Family Alcohol Use: Weekly Alcohol Amount: 1-2 drinks a week Substance Use Type: None Smoking Status (MU): Former Smoker Type: Cigarettes Amount Used/How Often: smoked for approx 4 yrs, smoked 1 pk a week Length of Time of Smoking/Using Tobacco: 5 years Have You Smoked in the Last Year: Yes When Did the Patient Quit Smoking/Using Tobacco: 2014 - Immunization History Most Recent Influenza Vaccination: doesn't get Vaccination Up to Date: Yes Review of Systems All Other Systems Reviewed And Are Negative: Yes Constitutional: Positive: Negative Skin: Positive: Negative Eyes: Positive: Negative ENT: Positive: Negative Respiratory: Positive: Negative Cardiovascular: Positive: Negative Gastrointestinal: Positive: Negative Genitourinary: Positive: Vaginal/Penile Itching, Vaginal/Penile Discharge - w/ a fishy odor Motor: Positive: Negative Neurovascular: Positive: Negative Musculoskeletal: Positive: Negative Neurological: Positive: Negative Psychological: Positive: Negative Is Patient Immunocompromised?: No Physical Exam - Summary Physical Exam Summary: Vital signs: reviewed General: well developed, well nourished female sitting in the examining table w/o any acute distress. Head: Normocephalic, no lesions. Eyes: PERRLA, EOM's full, conjunctiva clear, fundi grossly normal. Ears: EAC's clear, TM's normal. Nose: Mucosa normal, no obstruction. Throat: Clear, no exudates, no lesions. Neck: Supple, no masses, no thyromegaly, no bruits. Chest: Lungs clear, no rales, no rhonchi, no wheezes. Heart: RR, no murmurs, no rubs, no gallops. Abdomen: Soft, no tenderness, no masses, BS normal. Pelvic: I was assisted by nurse Sofy. External genitalia within normal limits. There is no lesions there is no masses noted. Speculum exam: The vaginal jefferson are within normal limits w/ greyish clear vaginal discharge w/ fishy odor , no lesions or rashes. The cervix is closed with no lesions or masses. There is no CMT's, and no adnexal masses. Sample sent to Lab Affirm panel. Rectal: No lesions, no hemorrhoids, Back: Normal curvature, no tenderness. Extremities: FROM, no deformities, no edema, no erythema. Neuro: Physiological, no localizing findings. Skin: Normal, no rashes, no lesions noted. Triage Information Reviewed: Yes Vital Signs: Initial Vital Signs Temp 97.8 F 05/31/19 20:12 Pulse 84 05/31/19 20:12 Resp 18 05/31/19 20:12 BP 130/83 05/31/19 20:12 Pulse Ox 100 05/31/19 20:12 Complaint Female Dx - Course Course Of Treatment: 28 y/o female presents to the urgent care c/o itchy vaginal discharge w/ a fishy odor for the past 2 weeks. Pt reports she has been taken a courses of antibiotics for the past 2 month. She was Dx First w/ sinusitis and was Tx and then w/ pneumonia and Tx w/ antibiotics. She feels mild pelvic pressure, but not urinary symptoms. Pt denies fever, flank pain, lower back pain, abdominal pain, SOB, chest pain, N/V/d. or Hx of STD's. LMP: 05/21/2019 w/ regular menstrual cycles. Last PAP wasn negative 8months ago. Hx obtained. Pt with Bacterial vaginosis on pelvic examination. Pt Rx Metronidazole vaginal cream. Pt declined UA. Specimen were sent to lab, Advised she will be notified if any abnormal result from lab. D/C instructions explained. Pt understood and agreed with plan of care. - Differential Dx/Diagnosis Differential Diagnosis/HQI/PQRI: Cervicitis, Ovarian Torsion, , Renal Colic, Sexually Transmitted Disease, Ureteral Stone, Urinary Tract Infection Provider Diagnosis: Bacterial vaginosis Discharge ED - Sign-Out/Discharge Documenting (check all that apply): Patient Departure - D/C home All imaging exams completed and their final reports reviewed: No Studies - Discharge Plan Condition: Stable Disposition: HOME Prescriptions: Fluconazole 150 MG TAB* [Diflucan 150 MG TAB*] 150 mg PO ONCE #2 tablet metroNIDAZOLE VAGINAL 0.75%* 1 applic VAGINAL BEDTIME #1 preeti Patient Education Materials: Bacterial Vaginosis (ED) Referrals: Dinorah Newberry, ADVANCED REGISTERED NURSE [Primary Care Provider] - 3 Days Additional Instructions: 1- Please apply take medications as directed. Avoid sexual intercourse while treatment 2- Specimen were sent to lab, if anything abnormal you will receive a call from us for further treatment. 3-If not improvement of symptoms please return to the urgent care or f/u with your BAR HOST/HOSTESS in 3 days for further treatment - Billing Disposition and Condition Condition: STABLE Disposition: Home - Attestation Statements Provider Attestation: This patient was not seen by me I was available for consult Chart reviewed PIPO
--- NOTE | 2019-06-02 07:20 | UC ---
- Progress Note Progress Note: Vaginal DNA from May 31, 2019 comes back as negative for Gardnerella positive for Vernell. Patient was treated with MetroGel for bacterial vaginosis on that date. Nursing to call patient inform them of the results. Have: A prescription for Diflucan to be taken 150 mg single tablet today. She can repeat the dose in 2-3 days if not improved. Get reevaluated if worse or not improving. Course/Dx - Diagnoses Provider Diagnoses: Bacterial vaginosis Discharge ED - Sign-Out/Discharge Documenting (check all that apply): Patient Departure All imaging exams completed and their final reports reviewed: No Studies - Discharge Plan Condition: Stable Disposition: HOME Prescriptions: Fluconazole 150 MG TAB* [Diflucan 150 MG TAB*] 150 mg PO ONCE #2 tablet metroNIDAZOLE VAGINAL 0.75%* 1 applic VAGINAL BEDTIME #1 preeti Patient Education Materials: Bacterial Vaginosis (ED) Referrals: Dinorah Newberry, CUT FILE CLERK [Primary Care Provider] - 3 Days Additional Instructions: 1- Please apply take medications as directed. Avoid sexual intercourse while treatment 2- Specimen were sent to lab, if anything abnormal you will receive a call from us for further treatment. 3-If not improvement of symptoms please return to the urgent care or f/u with your ASSIGNMENT OFFICER in 3 days for further treatment - Billing Disposition and Condition Condition: STABLE Disposition: Home
== END 2019-05-31 21:24 | disposition home or self-care (01) ==
LOC: UCEAST 19:53
DX: N76.0 Acute vaginitis (principal); B96.89 Other specified bacterial agents as the cause of diseases classified elsewhere; Z91.09 Other allergy status, other than to drugs and biological substances; Z87.891 Personal history of nicotine dependence
CPT/HCPCS: 87480; 87510; 99212; G0463

== ENCOUNTER 2019-07-01 06:21 | Day surgery (SDC) | payer OTHER ==
[~2019-07-01 06:21] MED LIST changes: +Acetaminophen TAB* 325 MG PO ONE; -Buffered Lidocaine 0.9% SYRIN* 5 ML/SYR SYRINGE INTRADERM ONE; +Buffered Lidocaine 1% SYRIN* 1 ML/SYRINGE INTRADERM ONE; -Dexamethasone IV* 4 MG/ML 1 ML (4 MG) IV SLOW PU ONE; +Gabapentin CAP(*) 300 MG PO ONE; +Lactated Ringers 1000 ML Bag* 1,000 ML IV SCH
[2019-07-01] MEDS ORDERED: Famotidine IV* 10 MG/ML 2 ML (20 mg) ONE (06:29)
[2019-07-01] MEDS ORDERED: Gabapentin CAP(*) 300 MG ONE (06:29)
[2019-07-01] MEDS ORDERED: Acetaminophen TAB* 325 MG ONE (06:29)
[2019-07-01] MEDS ORDERED: Buffered Lidocaine 1% SYRIN* 1 ML/SYRINGE INTRADERM ONE (06:53)
[2019-07-01] MEDS ORDERED: Bupivacaine 0.25% SDV* 30 ML ONE (07:28)
[2019-07-01] MEDS ORDERED: fentaNYL* 50 MCG/ML 2 ML VIAL (100 MCG VIAL) ONE (07:30)
[2019-07-01] MEDS ORDERED: Midazolam* 1 MG/ML 2 ML VIAL (2 MG) ONE ×2 (07:30→07:52)
[2019-07-01] MEDS ORDERED: Propofol* 10 MG/ML 20 ML BTL ONE (07:32)
[2019-07-01] MEDS ORDERED: Dexamethasone IV* 4 MG/ML 1 ML (4 MG) ONE (07:32)
[2019-07-01] MEDS ORDERED: Ondansetron INJ* 2 MG/ML VIAL ONE (07:32)
[2019-07-01] MEDS ORDERED: Ketorolac INJ* 30 MG/ML 1 ML VIAL ONE (07:32)
[2019-07-01] MEDS ORDERED: Lidocaine 2% PF * 5 ML VIAL ONE (07:32)
[2019-07-01] MEDS ORDERED: Scopolamine 1.5 mg* PATCH ONE (07:33)
[2019-07-01] MEDS ORDERED: PROCHLORPERAZINE INJ 5 MG/ML 2 ML VIAL IV PRN (07:53)
[2019-07-01] MEDS ORDERED: diPHENhydraMINE IV* 50 MG/ML 1 ml VIAL (BENADRYL) IV PRN (07:53)
[2019-07-01] MEDS ORDERED: Ondansetron INJ* 2 MG/ML VIAL IV PRN (07:53)
[2019-07-01] MEDS ORDERED: HYDROcodone/ACETAMIN 5-325 MG* 1 TAB PO PRN (07:53)
[2019-07-01] MEDS ORDERED: Naloxone* 0.4 MG/ML 1 ML VIAL IV PRN (07:53)
[2019-07-01] MEDS ORDERED: DiMENhydriNATE IV* 50 MG/ML VIAL IV PUSH PRN (07:53)
[2019-07-01] MEDS ORDERED: Levalbuterol HFA INHALER* 1 PUFF MDI ONE (09:27)
[2019-07-01 09:47] VITALS: BP 116/62
--- NOTE | 2019-07-02 20:34 | OP ---
DATE OF OPERATION: 07/01/19 [facility] DATE OF : [birth year] SURGEON: Renato Aleman MD BOW TACKER: CIARAN Jiang ANESTHESIOLOGIST: Dr. Isaac. ANESTHESIA: General. PRE-OP DIAGNOSIS: Right carpal tunnel syndrome. POST-OP DIAGNOSIS: Right carpal tunnel syndrome. OPERATIVE PROCEDURE: Right endoscopic carpal tunnel release. INDICATIONS: Isra has the aforementioned conditions. We talked about treatment options. She wanted to proceed with surgery. ESTIMATED BLOOD LOSS: 2 mL. COMPLICATIONS: None. FINDINGS: See above and below. DESCRIPTION OF PROCEDURE: Ms. Grubbs was seen in the preoperative holding area. The correct site, side and procedure were identified. We came back to the operating room. The arm was prepped and draped in the usual fashion and a time- out was performed. The arm was exsanguinated with the Esmarch and the tourniquet was inflated to 225 mmHg. I went ahead and made a 1 cm transverse incision just ulnar to the palmaris longus tendon. Dissection was carried down to the subcutaneous tissue. The distal antebrachial fascia was spread transversely bluntly. A 2-pronged skin hook was placed. The carpal tunnel was dilated open. The MicroAire Endoscopic Carpal Tunnel System was introduced. The release was carried out from distal to proximal. Once I confirmed the release to be excellent distally, I released the distal antebrachial fascia proximally. At this point, everything was looking good. The wound was irrigated out. Skin was closed with 4-0 Prolene suture and Steri- Strips. The 0.25% Marcaine was infiltrated all around the area. The wound was dressed and she was taken to the recovery room in stable condition. [id number]/[facility] #: [id number] [facility]
[2019-07-04] MEDS ORDERED: Scopolamine PATCH Remove* 1 NOTE MISC PATCH OFF ONE (07:53)
== END 2019-07-01 10:25 | disposition home or self-care (01) ==
LOC: OREAST 06:21
PROVIDERS: ATTEND Orthopaedic Surgery Hand Surgery
DX: G56.01 Carpal tunnel syndrome, right upper limb (principal); Z87.891 Personal history of nicotine dependence; F41.8 Other specified anxiety disorders; R00.1 Bradycardia, unspecified; J45.909 Unspecified asthma, uncomplicated
CPT/HCPCS: 81025; A9270-GY; J1100; J1885; J2250; J2405; J2704; J3010; J3490

== ENCOUNTER 2019-07-23 12:22 | Emergency (ER) | payer OTHER ==
--- OUTSIDE RECORDS SUMMARY | 2019-07-23 12:27 | XMS REPORT | Continuity of Care Document ---
:1990 External Reference #:[id number] Author Name Renato Aleman MD (transmitted by agent of provider Duy Johnson) Address [address] [place] [id number] Care Team Providers Name Role Phone Dinorah Newberry NP - Nurse Care Team Information Air Chief Marshal [phone] Practitioner Problems Active Problems Provider Date Carpal tunnel syndrome of right wrist Renato Aleman MD Onset: 05/18/2019 Social History Type Date Description Comments Sex Unknown ETOH Use Drinks 5 Alcoholic Beverages Per Week Tobacco Use Start: Unknown Patient has never smoked Smoking Status Reviewed: 06/29/19 Patient has never smoked Exercise Type/Frequency Exercises regularly Allergies, Adverse Reactions, Alerts Description No Known Drug Allergies Medications Description No Active Medications Immunizations Description No Information Available Vital Signs Date Vital Result Comment 06/29/2019 8:50am Height 66 inches 5'6" Weight 150.00 lb Heart Rate 91 /min BP Systolic 120 mmHg BP Diastolic 76 mmHg Respiratory Rate 16 /min Body Temperature 97.1 F Pain Level 10 O2 % BldC Oximetry 98 % BMI (Body Mass Index) 24.2 kg/m2 06/15/2019 1:48pm Height 66 inches 5'6" Weight 150.50 lb Heart Rate 82 /min BP Systolic 104 mmHg BP Diastolic 76 mmHg Respiratory Rate 16 /min Pain Level 6 BMI (Body Mass Index) 24.3 kg/m2 Results Description No Information Available Procedures Description No Information Available Medical Devices Description No Information Available Encounters Type Date Location Provider Dx Diagnosis Office Visit 05/18/2019 [facility] Renato Aleman G56.01 Carpal tunnel 8:00a at [place] syndrome, right upper limb Assessments Date Code Description Provider 06/29/2019 G56.01 Carpal tunnel syndrome, right upper limb Renato Aleman MD 06/15/2019 G56.01 Carpal tunnel syndrome, right upper limb Renato Aleman MD 05/18/2019 G56.01 Carpal tunnel syndrome, right upper limb Renato Aleman MD Plan of Treatment Future Appointment(s):07/13/2019 8:00 am - JOIE Vu at [facility] at Llgquc7907/16/2019 10:00 am - JOIE Vu at [facility] at Pdxayu1907/01/2019 2:30 pm - Renato Aleman MD at [facility] at Avctbm6706/29/2019 - Renato Aleman MDG56.01 Carpal tunnel syndrome, right upper limbFollow up:Follow up: 10-14 days postop Functional Status Description No Information Available Mental Status Description No Information Available Referrals Description No Information Available
--- OUTSIDE RECORDS SUMMARY | 2019-07-23 12:27 | XMS REPORT | Continuity of Care Document ---
:1990 External Reference #:[id number] Author Name JOIE Vu (transmitted by agent of provider Duy Johnson) Address [address] [place] [address] [place] [address] Care Team Providers Name Role Phone Dinorah Newberry NP - Nurse Care Team Information Re[employer] Motel Manager [phone] Practitioner Problems Active Problems Provider Date Carpal tunnel syndrome of right wrist Renato Aleman MD Onset: 05/18/2019 Social History Type Date Description Comments Sex Unknown ETOH Use Drinks 5 Alcoholic Beverages Per Week Tobacco Use Start: Unknown Patient has never smoked Smoking Status Reviewed: 07/13/19 Patient has never smoked Exercise Type/Frequency Exercises regularly Allergies, Adverse Reactions, Alerts Description No Known Drug Allergies Medications Active Medications SIG Qnty Indications Ordering Provider Date No Active Medications Unknown 07/13/2019 History Medications Tramadol HCL 1-2 tablets by 20tabs Renato Aleman, 07/01/2019 - 50mg Tablets mouth every 6 MD 07/12/2019 hours as needed pain No Active Medications Unknown 05/18/2019 - 07/01/2019 Immunizations Description No Information Available Vital Signs Date Vital Result Comment 07/13/2019 8:05am Height 66 inches 5'6" Weight 145.00 lb Heart Rate 66 /min BP Systolic 116 mmHg BP Diastolic 86 mmHg Respiratory Rate 18 /min Body Temperature 98.4 F Pain Level 0 BMI (Body Mass Index) 23.4 kg/m2 06/29/2019 8:50am Height 66 inches 5'6" Weight 150.00 lb Heart Rate 91 /min BP Systolic 120 mmHg BP Diastolic 76 mmHg Respiratory Rate 16 /min Body Temperature 97.1 F Pain Level 10 O2 % BldC Oximetry 98 % BMI (Body Mass Index) 24.2 kg/m2 Results Description No Information Available Procedures Date Code Description Status 07/01/2019 19706 Endoscopy Wrist Surg W/Release Of Transverse Carpal Completed Ligament 07/01/2019 90068 Endoscopy Wrist Surg W/Release Of Transverse Carpal Completed Ligament Medical Devices Description No Information Available Encounters Type Date Location Provider Dx Diagnosis Office Visit 06/29/2019 [facility] Renato Aleman, G56.01 Carpal tunnel 8:45a at [place] syndrome, right upper limb Office Visit 05/18/2019 [facility] Renato Aleman, G56.01 Carpal tunnel 8:00a at [place] syndrome, right upper limb Assessments Date Code Description Provider 07/13/2019 G56.01 Carpal tunnel syndrome, right upper Sathya Crowley , TUYET-C limb 07/01/2019 G56.01 Carpal tunnel syndrome, right upper CIARAN Jiang limb 07/01/2019 G56.01 Carpal tunnel syndrome, right upper Renato Aleman MD limb 06/29/2019 G56.01 Carpal tunnel syndrome, right upper Renato Aleman MD limb 06/15/2019 G56.01 Carpal tunnel syndrome, right upper Renato Aleman MD limb 05/18/2019 G56.01 Carpal tunnel syndrome, right upper Renato Aleman MD limb Plan of Treatment 07/13/2019 - Sathya Crowley, RPA-CG56.01 Carpal tunnel syndrome, right upper limbFollow up:Follow up: 2 - [address] Aleman Functional Status Description No Information Available Mental Status Description No Information Available Referrals Description No Information Available
[2019-07-23 12:55] VITALS: BP 119/74
--- NOTE | 2019-07-23 13:34 | UC ---
Complaint Female HPI - HPI Summary HPI Summary: PATIENT COMPLAINS OF SEVERAL DAYS OF VAGINAL ITCHING, IRRITATION AND THICK WHITE DISCHARGE. HAD CARPAL TUNNEL SURGERY A COUPLE OF WEEKS AGO AND HAS BEEN UNABLE TO TAKE A SHOWER SO SHE HAS BEEN TAKING BATHS. WAS ALSO ON ANTIBIOTICS PRIOR TO THAT. PATIENT STATES SHE IS EXTREMELY PRONE TO YEAST INFECTIONS AND GETS THEM JUST ABOUT EVERY TIME SHE TAKES AN ANTIBIOTIC OR TAKES A BATH. SHE IS NOT CONCERNED ABOUT STD AT ALL. SHE DENIES ANY URINARY SYMPTOMS. MENSES JUST ENDED SO IS NOT CONCERNED ABOUT . - History Of Current Complaint Chief Complaint: UCGU Stated Complaint: PERSONAL Time Seen by Provider: 07/23/19 13:19 Hx Obtained From: Patient Hx Last Menstrual Period: 07/18/19 Onset/Duration: Gradual Onset, Lasting Days, Still Present Timing: Constant Severity Initially: Moderate Severity Currently: Moderate Pain Intensity: 7 Pain Scale Used: 0-10 Numeric Aggravating Factor(s): Nothing Alleviating Factor(s): Nothing Associated Signs And Symptoms: Positive: Vaginal Discharge. Negative: Fever, Back Pain - Allergies/Home Medications Allergies/Adverse Reactions: Allergies Allergy/AdvReac Type Severity Reaction Status Date / Time Seasonal Allergy Congestion Uncoded 07/23/19 12:55 PMH/Surg Hx/FS Hx/Imm Hx Respiratory History: Asthma - Surgical History Surgical History: Yes Surgery Procedure, Year, and Place: Tubes in ears as a child. [place] teeth, late teens. T&A February 2017. carpal tunnel 07/08 - Family History Known Family History: Positive: Non-Contributory - Social History Alcohol Use: Rare Alcohol Amount: 1-2 drinks a week Substance Use Type: None Smoking Status (MU): Former Smoker Type: Cigarettes Amount Used/How Often: smoked for approx 4 yrs, smoked 1 pk a week Length of Time of Smoking/Using Tobacco: 5 years Have You Smoked in the Last Year: Yes When Did the Patient Quit Smoking/Using Tobacco: 2014 - Immunization History Most Recent Influenza Vaccination: doesn't get Vaccination Up to Date: Yes Review of Systems All Other Systems Reviewed And Are Negative: Yes Constitutional: Positive: Negative Skin: Positive: Negative Respiratory: Positive: Negative Cardiovascular: Positive: Negative Gastrointestinal: Positive: Negative Genitourinary: Positive: Vaginal/Penile Itching, Vaginal/Penile Discharge. Negative: Dysuria, Frequency, Urgency Physical Exam Triage Information Reviewed: Yes Appearance: Well-Appearing, No Pain Distress, Well-Nourished Vital Signs: Initial Vital Signs Temp 98.0 F 07/23/19 12:51 Pulse 73 07/23/19 12:51 Resp 18 07/23/19 12:51 BP 119/74 07/23/19 12:51 Pulse Ox 100 07/23/19 12:51 Vital Signs Reviewed: Yes Eyes: Positive: Conjunctiva Clear ENT: Positive: Hearing grossly normal Neck: Positive: Supple Respiratory: Positive: No respiratory distress, No accessory muscle use Cardiovascular: Positive: Pulses Normal Abdomen Description: Positive: Soft Musculoskeletal: Positive: No Edema Neurological: Positive: Alert Psychological: Positive: Age Appropriate Behavior Skin: Negative: Rashes Complaint Female Dx - Course Course Of Treatment: HISTORY IS CONSISTENT WITH VAGINAL YEAST INFECTION. PELVIC EXAM DECLINED. WILL TREAT EMPIRICALLY WITH DIFLUCAN. ALSO ADVISED SHE USE OTC MEDICATION TO HELP INCREASE HER CHANCES OF RECOVERY. FOLLOW-UP WITH TERADATA DEVELOPER IF NEEDED. - Differential Dx/Diagnosis Provider Diagnosis: Vulvovaginal candidiasis Discharge ED - Sign-Out/Discharge Documenting (check all that apply): Patient Departure All imaging exams completed and their final reports reviewed: No Studies - Discharge Plan Condition: Stable Disposition: HOME Prescriptions: Fluconazole 150 MG (NF) [Diflucan 150 mg (NF)] 150 mg PO ONCE #2 tab Patient Education Materials: Yeast Infection (ED) Referrals: Dinorah Newberry NP [Primary Care Provider] - If Needed Additional Instructions: YOUR PRESENTATION IS CONSISTENT WITH YEAST INFECTION. TAKE THE DIFLUCAN DIRECTED. I RECOMMEND YOU USE OTC MONISTAT WELL TO INCREASE YOUR CHANCES OF RESOLUTION. FOLLOW-UP WITH YOUR TERADATA DEVELOPER IF NEEDED. - Billing Disposition and Condition Condition: STABLE Disposition: Home
== END 2019-07-23 13:40 | disposition home or self-care (01) ==
LOC: UCEAST 12:22
DX: B37.3 Candidiasis of vulva and vagina (principal); J45.909 Unspecified asthma, uncomplicated; Z87.891 Personal history of nicotine dependence; Z91.09 Other allergy status, other than to drugs and biological substances
CPT/HCPCS: 99212; G0463

== ENCOUNTER 2019-09-06 11:32 | Emergency (ER) | payer OTHER ==
--- OUTSIDE RECORDS SUMMARY | 2019-09-06 11:37 | XMS REPORT | Continuity of Care Document ---
:1990 External Reference #:[id number] Author Name Renato Alemna MD (transmitted by agent of provider Duy Johnson) Address [address] [place] [id number] Care Team Providers Name Role Phone Dinorah Newberry NP - Nurse Care Team Information Base Manager [phone] Practitioner Problems Active Problems Provider Date Carpal tunnel syndrome of right wrist Renato Aleman MD Onset: 05/18/2019 Social History Type Date Description Comments Sex Unknown ETOH Use Drinks 5 Alcoholic Beverages Per Week Tobacco Use Start: Unknown Patient has never smoked Smoking Status Reviewed: 08/03/19 Patient has never smoked Exercise Type/Frequency Exercises [...] Available Vital Signs Date Vital Result Comment 08/03/2019 10:03am Height 66 inches 5'6" Weight 150.00 lb pt stated Heart Rate 80 /min BP Systolic 120 mmHg BP Diastolic 60 mmHg Respiratory Rate 16 /min Pain Level 1 BMI (Body Mass Index) 24.2 kg/m2 07/13/2019 8:05am Height 66 inches 5'6" Weight 145.00 lb Heart Rate 66 /min BP Systolic 116 mmHg BP Diastolic 86 mmHg Respiratory Rate 18 /min Body Temperature 98.4 F Pain Level 0 BMI (Body Mass Index) 23.4 kg/m2 Results Description No Information Available Procedures Date Code Description Status 07/01/2019 07666 Endoscopy Wrist Surg W/Release Of Transverse Carpal Completed Ligament 07/01/2019 16733 Endoscopy Wrist Surg W/Release Of Transverse Carpal Completed Ligament Medical Devices Description No Information Available Encounters Type Date Location Provider Dx Diagnosis Office Visit 06/29/2019 [facility] Renato Aleman, G56.01 Carpal tunnel 8:45a at [place] syndrome, right upper limb Office Visit 05/18/2019 [facility] Renato Aleman, G56.01 Carpal tunnel 8:00a at [place] syndrome, right upper limb Assessments Date Code Description Provider 07/13/2019 G56.01 Carpal tunnel syndrome, right upper JOIE Vu limb 07/13/2019 Z48.89 Encounter for other specified GAVIN Vu surgical aftercare 07/01/2019 G56.01 Carpal tunnel syndrome, right upper CIARAN Jiang limb 07/01/2019 G56.01 Carpal tunnel syndrome, right upper Renato Aleman MD limb 06/29/2019 G56.01 Carpal tunnel syndrome, right upper Renato Aleman MD limb 06/15/2019 G56.01 Carpal tunnel syndrome, right upper Renato Aleman MD limb 05/18/2019 G56.01 Carpal tunnel syndrome, right upper Renato Aleman MD limb Plan of Treatment No Information Available Functional Status Description No Information Available Mental Status Description No Information Available Referrals Description No Information Available
[2019-09-06 12:14] VITALS: BP 121/82
--- NOTE | 2019-09-06 12:23 | UC ---
Complaint Female HPI - HPI Summary HPI Summary: 28 yo female presents with vaginal bleeding. She tells me that for the last 18 days she has been having vaginal bleeding everyday. She states her periods are usually 27-29 days apart and 2-3 days in length with moderate bleeding and little cramping. She had her LMP around 07/21/19 which was usual for her. She was sexually active about 4-5 days later with her boyfriend and took plan B the next morning. Around 08/20 she started noticing spotting and has been intermittently spotting with mild flow since that time. Accompanied by central pelvic cramping. Has been taking ibuprofen 400mg and using a heating pack with little relief. She was on OBC about 2 years ago, but non since. She denies n/v/d /c, dysuria, back pain, or concern for STD today. She is - History Of Current Complaint Chief Complaint: UCGU Stated Complaint: PERSONAL Time Seen by Provider: 09/06/19 12:23 Hx Obtained From: Patient Hx Last Menstrual Period: Onset/Duration: Gradual Onset Timing: Constant Severity Initially: Moderate Severity Currently: Moderate Pain Intensity: 5 Pain Scale Used: 0-10 Numeric - Allergies/Home Medications Allergies/Adverse Reactions: Allergies Allergy/AdvReac Type Severity Reaction Status Date / Time Seasonal Allergy Congestion Uncoded 07/23/19 12:55 Home Medications: Home Medications Ibuprofen TAB* [Motrin TAB* 400 MG] 400 mg PO Q6H PRN 09/06/19 [History Confirmed 09/06/19] PMH/Surg Hx/FS Hx/Imm Hx - Additional Past Medical History Additional PMH: None - Surgical History Surgical History: Yes Surgery Procedure, Year, and Place: Tubes in ears as a child. [place] teeth, late teens. T&A February 2017. carpal tunnel 07/08 - Family History Known Family History: Positive: Non-Contributory - Social History Alcohol Use: Rare Alcohol Amount: 1-2 drinks a week Substance Use Type: None Smoking Status (MU): Former Smoker Type: Cigarettes Amount Used/How Often: smoked for approx 4 yrs, smoked 1 pk a week Length of Time of Smoking/Using Tobacco: 5 years Have You Smoked in the Last Year: Yes When Did the Patient Quit Smoking/Using Tobacco: 2014 - Immunization History Most Recent Influenza Vaccination: doesn't get Vaccination Up to Date: Yes Review of Systems All Other Systems Reviewed And Are Negative: No Constitutional: Positive: Negative Skin: Positive: Negative Respiratory: Positive: Negative Cardiovascular: Positive: Negative Gastrointestinal: Positive: Negative Genitourinary: Positive: Abnormal Bleeding Motor: Positive: Negative Neurovascular: Positive: Negative Musculoskeletal: Positive: Negative Neurological/Mental Status: Positive: Negative Psychological: Positive: Negative Physical Exam - Summary Physical Exam Summary: GENERAL: NAD. WDWN. No pain distress. SKIN: No rashes, sores, lesions, or open wounds. NECK: Supple. Nontender. No lymphadenopathy. CHEST: CTAB. No r/r/w. No accessory muscle use. Breathing comfortably and in no distress. CV: RRR. Pulses intact. Cap refill <2seconds ABDOMEN: Soft. NTTP. No distention or guarding. No CVA tenderness. Bowel sounds present NEURO: Alert. PSYCH: Age appropriate behavior. Triage Information Reviewed: Yes Vital Signs: Initial Vital Signs Temp 98.0 F 09/06/19 12:10 Pulse 75 09/06/19 12:10 Resp 16 09/06/19 12:10 BP 121/82 09/06/19 12:10 Pulse Ox 100 09/06/19 12:10 Laboratory Tests 09/06/19 09/06/19 12:31 12:33 POC Urine Color Yellow POC Urine Clarity Clear POC Urine pH 7.5 POC Ur Specif Reeder 1.020 POC Urine Protein Negative POC Ur Glucose (UA) Negative POC Urine Ketones Negative POC Urine Blood Trace-intact POC Urine Nitrite Negative POC Urine Bilirubin Negative POC Urine Urobilinogen 0.2 POC U Leukocyte Esteras Negative POC Ur Test Negative Vital Signs Reviewed: Yes Pelvic Exam: Positive: External Exam Normal, No Cerv. Motion Tender, Other - Exam assisted by Carlos GIBSON. Negative: Active Bleeding, Blood, Discharge, Lesions, Mass, Tender w/ Cervical Motion, Tender Adnexa, Tender Uterus, Ulcers Diagnostics - Radiology Transvaginal US Radiology Interpretation Completed By: Radiologist Summary of Radiographic Findings: FINDINGS: UTERUS: The uterus measures 7.2 cm x 3.1 cm x 4.3 cm. The uterus is normal in shape, size, contour, and echotexture. ENDOMETRIUM: The endometrial stripe is smooth. The endometrium measures 0.3 cm in thickness. CUL-DE-SAC: There is no free fluid within the cul- de-sac. RIGHT OVARY: The right ovary measures 2.5 cm x 2.5 cm x 2.6 cm. Multiple follicles are noted. Normal arterial and venous waveforms are identifiable within the ovary on spectral Doppler imaging. LEFT OVARY: The left ovary measures 1.8 cm x 1.9 cm x 2.7 cm. Multiple follicles are noted. Normal arterial and venous waveforms are identifiable within the ovary on spectral Doppler imaging. BLADDER: The bladder is not well visualized. OTHER: None IMPRESSION: NO ACUTE SONOGRAPHIC PATHOLOGY OF THE VISUALIZED PORTION OF THE PELVIS. Complaint Female Dx - Course Course Of Treatment: UA and US as above. Urine negative. Discussed possibility of starting OBC today, but pt declines as she is getting in February and wants to be able to get COURTNEY. She is not tachycardic or hypotensive and has no indications of anemia at this time. Will draw for CBC, CMP, and TSH and refer her to OBGYN/[facility] for further evaluation. - Differential Dx/Diagnosis Provider Diagnosis: DUB (dysfunctional uterine bleeding) Discharge ED - Sign-Out/Discharge Documenting (check all that apply): Patient Departure All imaging exams completed and their final reports reviewed: Yes - Discharge Plan Condition: Stable Disposition: HOME Prescriptions: Naproxen [Naproxen 500 mg tab] 500 mg PO BID PRN #60 tablet PRN Reason: Pain - Moderate Patient Education Materials: Dysfunctional Uterine Bleeding (ED) Forms: *Work Release Referrals: Dinorah Newberry NP [Primary Care Provider] - Bess Perez MD [Medical Doctor] - As Soon As Possible Additional Instructions: If you develop a fever, shortness of breath, chest pain, new or worsening symptoms - please call your PCP or go to the ED immediately. Your ultrasound and exam were normal today. We have drawn labwork to further evaluate your abnormal bleeding. I recommend that you call [facility] at [phone] to schedule an appointment as soon as possible for further evaluation and treatment - Billing Disposition and Condition Condition: STABLE Disposition: Home
[2019-09-06 19:07] LABS: ABS Basophils 0.1 10^3/ul (0-0.2); ABS Eosinophils 0.6 10^3/ul (0-0.6); ABS Monocytes 0.5 10^3/ul (0-0.8); ABS Neutrophils 3.6 10^3/ul (1.5-7.7); Eosinophil % 8.7 %; Hematocrit 41 % (35-47); Hemoglobin 14.1 g/dL (12.0-16.0); Lymphocyte % 29.3 %; Mean Corpuscular HGB Conc 35 g/dL (31-36); Mean Corpuscular Hemoglobin 32 pg (27-31); Mean Corpuscular Volume 92 fL (80-97); Mean Platelet Volume 8.9 fL (7.4-10.4); Platelet Count 252 10^3/uL (150-450); Red Blood Count 4.44 10^6 /uL (3.70-4.87); Red Cell Distribution Width 12 % (10-15); White Blood Count 6.7 10^3/uL (3.5-10.8)
[2019-09-06 19:10] LABS: Albumin 4.5 g/dL (3.2-5.2); Calcium 9.3 mg/dL (8.6-10.3); Potassium 4.1 mmol/L (3.5-5.0); Total Bilirubin 0.3 mg/dL (0.2-1.0)
[2019-09-06 19:16] LABS: Albumin/Globulin Ratio 1.9 (1-3); BUN/Creatinine Ratio 14.8 (8-20); EGFR African American 103.4 (>60); EGFR Non-African American 85.5 (>60); Globulin 2.4 g/dL (2-4); Total Protein 6.9 g/dL (6.4-8.9)
[2019-09-06 19:39] LABS: TSH (Thyroid Stimulating Horm) 1.12 mcIU/mL (0.34-5.60)
[2019-09-07 13:14] LABS: Chlamydia trachomatis NAA Negative (Negative); Neisseria gonorrhoeae (GC) NAA Negative (Negative)
[2019-09-07 13:29] LABS: Trichomonas vag NAA Female Negative (Negative)
== END 2019-09-06 13:43 | disposition home or self-care (01) ==
LOC: UCEAST 11:32
DX: N93.8 Other specified abnormal uterine and vaginal bleeding (principal); Z87.891 Personal history of nicotine dependence; Z91.09 Other allergy status, other than to drugs and biological substances
CPT/HCPCS: 36415; 76830; 80053; 81003; 84443; 84702; 85025; 87480; 87491; 87510; 87591; 87661; 99212; G0463

== ENCOUNTER 2020-11-11 10:29 | Inpatient (IN) ==
[2020-11-11] MEDS ORDERED: Buffered Lidocaine 1% SYRIN 1 ml INTRADERM ONE (12:17)
[2020-11-11] MEDS ORDERED: Lactated Ringers 1000 ml BAG 1,000 ML IV ONE (12:17)
[2020-11-11] MEDS ORDERED: Lactated Ringers 1000 ml BAG 1,000 ML IV SCH (13:00)
[2020-11-11 15:52] LABS: ABS Basophils 0.1 10^3/ul (0-0.2); ABS Eosinophils 0.2 10^3/ul (0-0.6); ABS Lymphocytes 1.5 10^3/ul (1.0-4.8); ABS Monocytes 0.5 10^3/ul (0-0.8); ABS Neutrophils 7.4 10^3/ul (1.5-7.7); Eosinophil % 2.5 %; Hematocrit 34 % (35-47); Hemoglobin 11.7 g/dL (12.0-16.0); Mean Corpuscular HGB Conc 35 g/dL (31-36); Mean Corpuscular Hemoglobin 29 pg (27-31); Mean Corpuscular Volume 85 fL (80-97); Mean Platelet Volume 7.8 fL (7.4-10.4); Platelet Count 230 10^3/uL (150-450); Red Blood Count 3.99 10^6 /uL (3.70-4.87); Red Cell Distribution Width 14 % (10-15); White Blood Count 9.7 10^3/uL (3.5-10.8)
[2020-11-11 16:13] LABS: Urine Benzodiazepine Screen None Detected (None Detect); Urine Cannabinoids Screen None Detected (None Detect); Urine Opiates Screen None Detected (None Detect)
[2020-11-11] MEDS ORDERED: Oxytocin in LR 20 UNITS/1,000 ML BAG IVPB SCH (22:00)
[2020-11-11] MEDS ORDERED: OBEPIDURAL 250 ML EPIDURAL ONE (22:48)
[2020-11-11] MEDS ORDERED: Phenylephrine 40 mcg/mL 10mL (400mcg) SYRINGE IV PUSH PRN (23:31)
[2020-11-11] MEDS ORDERED: Sodium Citrate/Citric Acid LIQ 15 ML UDC PO PRN (23:31)
[2020-11-11] MEDS ORDERED: OBEPIDURAL 250 ML EPIDURAL SCH (23:45)
[2020-11-12 01:29] LABS: Urine Appearance Clear; Urine Bilirubin Negative (Negative); Urine Blood 1+ (Negative); Urine Color Straw; Urine Glucose Negative (Negative); Urine Ketones Negative (Negative); Urine Nitrite Negative (Negative); Urine Protein Negative (Negative); Urine Specific Gravity 1.002 (1.002-1.030); Urine Urobilinogen Negative (Negative)
[2020-11-12 02:32] LABS: Urine Bacteria Absent (Absent); Urine Red Blood Cell Trace(0-2/hpf) (Absent); Urine White Blood Cell Trace(0-5/hpf) (Absent)
[2020-11-12 02:33] LABS: Urine Squamous Epithelial Cell Present (Absent)
[2020-11-12] MEDS ORDERED: Dibucaine 1% OINT 28.35 GM TUBE PR PRN (11:51)
[2020-11-12] MEDS ORDERED: Glycerin ADULT 2.4 gm SUPP PR PRN (11:51)
[2020-11-12] MEDS ORDERED: Witch Hazel PAD JAR TOPICAL PRN (11:51)
[2020-11-12] MEDS ORDERED: Lactated Ringers 1000 ml BAG 1,000 ML IV SCH (12:00)
[2020-11-12] MEDS ORDERED: Oxytocin in LR 20 UNITS/1,000 ML BAG IVPB SCH (12:00)
[2020-11-12] MEDS ORDERED: Lidocaine 1% VIAL 10 MG/ML VIAL ONE (15:07)
[2020-11-13 07:15] LABS: ABS Eosinophils 0.2 10^3/ul (0-0.6); ABS Lymphocytes 1.6 10^3/ul (1.0-4.8); ABS Monocytes 0.6 10^3/ul (0-0.8); ABS Neutrophils 9.3 10^3/ul (1.5-7.7); Eosinophil % 1.5 %; Hematocrit 30 % (35-47); Hemoglobin 9.9 g/dL (12.0-16.0); Lymphocyte % 13.8 %; Mean Corpuscular HGB Conc 33 g/dL (31-36); Mean Corpuscular Hemoglobin 29 pg (27-31); Mean Corpuscular Volume 88 fL (80-97); Mean Platelet Volume 8.1 fL (7.4-10.4); Platelet Count 180 10^3/uL (150-450); Red Blood Count 3.41 10^6 /uL (3.70-4.87); Red Cell Distribution Width 14 % (10-15); White Blood Count 11.7 10^3/uL (3.5-10.8)
[2020-11-14 10:09] VITALS: BP 148/97
== END 2020-11-14 16:33 | disposition home or self-care (01) | DRG 807 ==
LOC: MCHOBOUT 10:29 → MCHOB 12:35
PROVIDERS: ADMIT Midwife; ATTEND Midwife